=== PATIENT | female | born 1960 | race Caucasian/White ===

== ENCOUNTER 2018-05-02 18:32 | Inpatient (IN) | payer MEDICAID ==
[~2018-05-02] VITALS: Ht 167.6 cm; Wt 71.9 kg
--- NOTE | 2018-05-02 18:37 | ED.ADGEN ---
Past History Past Medical History: Anxiety, Bipolar, Dementia, Depression, Schizophrenia Adult General Chief Complaint Chief Complaint ".. I don't know.. I am just here..." HPI HPI Patient is a 57 year old female who presents with hx mental status changes and aggressive behavior. Pt. has been a resident of [facility] since 02/22/2017. Patient has become aggressive, striking other patients and staff. Has become very agitated, having hallucinations. The lip thinks these have been attacking her stinger hands and face. Patient paranoid that people are after her. Has had increased insomnia. Cursing staff and other patients. Yelling episodes with no provocation. Patient sent to [place] for evaluation on a senior behavioral unit. Patient does have a history of dementia, peripheral vascular disease, episodes of bradycardia, insomnia, chronic pain, constipation, poor impulse control, anxiety, GERD, past history of alcohol abuse and Warnicke'-Korsakoff syndrome . Pt. Followed by Dr. Lundy. Pt. on arrival is very agitated. Difficult to redirect. Required sedation to complete blood and x-ray evaluation. Review of Systems Review of Systems Pt. very poor historian- denies complaints Constitutional: Denies fever or chills [] Eyes: Denies change in visual acuity, redness, or eye pain [] HENT: Denies nasal congestion or sore throat [] Respiratory: Denies cough or shortness of breath [] Cardiovascular: No additional information not addressed in HPI [] GI: Denies abdominal pain, nausea, vomiting, bloody stools or diarrhea [] : Denies dysuria or hematuria [] Musculoskeletal: Denies back pain or joint pain [] Integument: Denies rash or skin lesions [] Neurologic: Denies headache, focal weakness or sensory changes [] Endocrine: Denies polyuria or polydipsia [] All other systems were reviewed and found to be within normal limits, except as documented in this note. Family History Family History Not currently available Current Medications Current Medications See nursing for intermediate medications Current Medications Medications (Trade) Dose Ordered Sig/Yamel Start Time Stop Time Status Last Admin Dose Admin Acetaminophen (Tylenol) 650 mg PRN Q4HRS PRN 05/02/18 21:30 05/03/18 21:29 Cephalexin HCl (Keflex) 500 mg 1X ONCE 05/02/18 22:15 05/02/18 22:16 DC Diphenhydramine HCl (Benadryl Oral Elixir) 50 mg 1X ONCE 05/02/18 20:30 05/02/18 20:31 DC 05/02/18 20:30 50 MG Lactated Ringer's 1,000 ml @ 100 mls/hr Q10H 05/02/18 18:38 05/03/18 04:37 05/02/18 18:38 100 MLS/HR Lorazepam (Ativan) 2 mg 1X ONCE 05/02/18 21:45 05/02/18 22:14 DC 05/02/18 22:05 2 MG Ziprasidone (Geodon Im) 20 mg 1X ONCE 05/02/18 21:45 05/02/18 22:14 DC 05/02/18 22:06 20 MG Allergies Allergies Allergies Coded Allergies Type Severity Reaction Last Updated Verified trazodone Allergy Intermediate 05/02/18 Yes Physical Exam Physical Exam Constitutional: in acute emotional distress, non-toxic appearance. [] HENT: Normocephalic, atraumatic, bilateral external ears normal, oropharynx moist, no oral exudates, nose normal. [] Eyes: PERRLA, EOMI, conjunctiva normal, no discharge. [] Neck: Normal range of motion, no tenderness, supple, no stridor. [] Cardiovascular:Bradycardia Heart rate regular rhythm, no murmur []PMI to Lt. Lungs & Thorax: Bilateral breath sounds equal apexes with scattered wheezes on auscultation [] Abdomen: Bowel sounds normal, soft, no tenderness, no masses, no pulsatile masses. [] Skin: Warm, dry, no erythema, no rash. [] Back: No tenderness, no CVA tenderness. [] Extremities: No tenderness, no cyanosis, no clubbing, ROM intact, no edema. [] Neurologic: Alert , agitated, uncooperative,,moves all ext. , decrease plantar sensation, no gross focal deficits noted. [] Psychologic: Affect very anxious, agitated,, judgement obviously impaired,. [] Appears to be hallucinating at times. Paranoid. Very difficult to re-direct. Current Patient Data Vital Signs Vital Signs Date Time Temp Pulse Resp B/P (MAP) Pulse Ox O2 Delivery O2 Flow Rate FiO2 05/02/18 18:44 97.9 78 18 98 Room Air Lab Results Laboratory Tests Test 05/02/18 18:35 05/02/18 18:50 05/02/18 19:30 White Blood Count 6.3 x10^3/uL (4.0-11.0) Red Blood Count 4.36 x10^6/uL (3.50-5.40) Hemoglobin 14.0 g/dL (12.0-15.5) Hematocrit 42.5 % (36.0-47.0) Mean Corpuscular Volume 98 fL (79-100) Mean Corpuscular Hemoglobin 32 pg (25-35) Mean Corpuscular Hemoglobin Concent 33 g/dL (31-37) Red Cell Distribution Width 17.3 % (11.5-14.5) H Platelet Count 81 x10^3/uL (140-400) L Neutrophils (%) (Auto) 44 % (31-73) Lymphocytes (%) (Auto) 39 % (24-48) Monocytes (%) (Auto) 15 % (0-9) H Eosinophils (%) (Auto) 1 % (0-3) Basophils (%) (Auto) 0 % (0-3) Neutrophils # (Auto) 2.8 x10^3uL (1.8-7.7) Lymphocytes # (Auto) 2.4 x10^3/uL (1.0-4.8) Monocytes # (Auto) 0.9 x10^3/uL (0.0-1.1) Eosinophils # (Auto) 0.1 x10^3/uL (0.0-0.7) Basophils # (Auto) 0.0 x10^3/uL (0.0-0.2) Erythrocyte Sedimentation Rate 2 (0-25) Urine Collection Type Unknown Urine Color [place] Urine Clarity Clear Urine pH 5.5 Urine Specific [place] 1.025 Urine Protein 30 mg/dl (NEG-TRACE) Urine Glucose (UA) Neg mg/dL (NEG) Urine Ketones (Stick) 15 mg/dL (NEG) Urine Blood Neg (NEG) Urine Nitrite Pos (NEG) Urine Bilirubin Neg (NEG) Urine Urobilinogen Dipstick 8 mg/dL (0.2 mg/dL) Urine Leukocyte Esterase Small (NEG) Urine RBC 0 /HPF (0-2) Urine WBC 11-20 /HPF (0-4) Urine Squamous Epithelial Cells Occ /LPF Urine Bacteria Few /HPF (0-FEW) Urine Mucus Mod /LPF Urine Opiates Screen Neg (NEG) Urine Methadone Screen Neg (NEG) Urine Barbiturates Neg (NEG) Urine Phencyclidine Screen Neg (NEG) Urine Amphetamine/Methamphetamine Neg (NEG) Urine Benzodiazepines Screen Neg (NEG) Urine Cocaine Screen Neg (NEG) Urine Cannabinoids Screen Neg (NEG) Urine Ethyl Alcohol Neg (NEG) Prothrombin Time 11.2 SEC (9.4-11.4) Prothrombin Time INR 1.1 (0.9-1.1) PTT 27 SEC (23-33) Sodium Level 146 mmol/L (136-145) H Potassium Level 4.1 mmol/L (3.5-5.1) Chloride Level 110 mmol/L (98-107) H Carbon Dioxide Level 30 mmol/L (21-32) Anion Gap 6 (6-14) Blood Urea Nitrogen 15 mg/dL (7-20) Creatinine 0.8 mg/dL (0.6-1.0) Estimated GFR (Cockcroft-Gault) 73.9 Glucose Level 100 mg/dL (70-99) H Calcium Level 8.7 mg/dL (8.5-10.1) Magnesium Level 1.8 mg/dL (1.8-2.4) Total Bilirubin 0.5 mg/dL (0.2-1.0) Direct Bilirubin 0.2 mg/dL (0.0-0.2) Aspartate Amino Transferase (AST) 13 U/L (15-37) L Alanine Aminotransferase (ALT) 10 U/L (14-59) L Alkaline Phosphatase 49 U/L (46-116) Creatine Kinase 24 U/L (26-192) L Troponin I Quantitative < 0.017 ng/mL (0-0.055) YS-Afi-J-Type Natriuretic Peptide 236 pg/mL (0-124) H Total Protein 6.1 g/dL (6.4-8.2) L Albumin 2.8 g/dL (3.4-5.0) L Lipase 204 U/L (73-393) EKG EKG My interpretation EKG shows a sinus rhythm at 68 bpm. Low voltage. No acute findings.[] Radiology/Procedures Radiology/Procedures Patient chest x-ray shows no acute cardiopulmonary findings.. Findings of chronic emphysema/COPD changes.. My interpretation CT head shows no shift, mass , bleed, or fracture. Does have some volume loss.[ Cervical DJD. No obvious fx. ]See formal report when available. Course & Med Decision Making Course & Med Decision Making Pertinent Labs and Imaging studies reviewed. (See chart for details) Patient admitted to senior behavioral psych- Dr. Daley. Consult to Dr. Villegas for medical issues. [] Final Impression Final Impression 1. Mental Status Change 2. Dementia 3. Aggressive Behavior 4. Hypernatremia 146 5. Thrombocytopenia 81 6. Hx. Schizoaffective Disorder 7. UTI [] Dragon Disclaimer Dragon Disclaimer This electronic medical record was generated, in whole or in part, using a voice recognition dictation system. [employer] Disclaimer This chart was dictated in whole or in part using Voice Recognition software in a busy, high-work load, and often noisy Emergency Department environment. It may contain unintended and wholly unrecognized errors or omissions. Discharge Summary Visit Information Final Diagnosis Problems Medical Problems: (1) Mental status change resolved Status: Acute Brief Hospital Course Allergies Allergies Coded Allergies Type Severity Reaction Last Updated Verified trazodone Allergy Intermediate 05/02/18 Yes Vital Signs Vital Signs Date Time Temp Pulse Resp B/P (MAP) Pulse Ox O2 Delivery O2 Flow Rate FiO2 05/03/18 07:19 98.2 55 16 117/89 (98) 95 05/02/18 18:44 Room Air Lab Results Laboratory Tests Test 05/02/18 18:35 05/02/18 18:50 05/02/18 19:30 White Blood Count 6.3 x10^3/uL (4.0-11.0) Red Blood Count 4.36 x10^6/uL (3.50-5.40) Hemoglobin 14.0 g/dL (12.0-15.5) Hematocrit 42.5 % (36.0-47.0) Mean Corpuscular Volume 98 fL (79-100) Mean Corpuscular Hemoglobin 32 pg (25-35) Mean Corpuscular Hemoglobin Concent 33 g/dL (31-37) Red Cell Distribution Width 17.3 % (11.5-14.5) Platelet Count 81 x10^3/uL (140-400) Neutrophils (%) (Auto) 44 % (31-73) Lymphocytes (%) (Auto) 39 % (24-48) Monocytes (%) (Auto) 15 % (0-9) Eosinophils (%) (Auto) 1 % (0-3) Basophils (%) (Auto) 0 % (0-3) Neutrophils # (Auto) 2.8 x10^3uL (1.8-7.7) Lymphocytes # (Auto) 2.4 x10^3/uL (1.0-4.8) Monocytes # (Auto) 0.9 x10^3/uL (0.0-1.1) Eosinophils # (Auto) 0.1 x10^3/uL (0.0-0.7) Basophils # (Auto) 0.0 x10^3/uL (0.0-0.2) Erythrocyte Sedimentation Rate 2 (0-25) Urine Collection Type Unknown Urine Color [place]chan Urine Clarity Clear Urine pH 5.5 Urine Specific [place] 1.025 Urine Protein 30 mg/dl (NEG-TRACE) Urine Glucose (UA) Neg mg/dL (NEG) Urine Ketones (Stick) 15 mg/dL (NEG) Urine Blood Neg (NEG) Urine Nitrite Pos (NEG) Urine Bilirubin Neg (NEG) Urine Urobilinogen Dipstick 8 mg/dL (0.2 mg/dL) Urine Leukocyte Esterase Small (NEG) Urine RBC 0 /HPF (0-2) Urine WBC 11-20 /HPF (0-4) Urine Squamous Epithelial Cells Occ /LPF Urine Bacteria Few /HPF (0-FEW) Urine Mucus Mod /LPF Urine Opiates Screen Neg (NEG) Urine Methadone Screen Neg (NEG) Urine Barbiturates Neg (NEG) Urine Phencyclidine Screen Neg (NEG) Urine Amphetamine/Methamphetamine Neg (NEG) Urine Benzodiazepines Screen Neg (NEG) Urine Cocaine Screen Neg (NEG) Urine Cannabinoids Screen Neg (NEG) Urine Ethyl Alcohol Neg (NEG) Prothrombin Time 11.2 SEC (9.4-11.4) Prothromb Time International Ratio 1.1 (0.9-1.1) Activated Partial Thromboplast Time 27 SEC (23-33) Sodium Level 146 mmol/L (136-145) Potassium Level 4.1 mmol/L (3.5-5.1) Chloride Level 110 mmol/L (98-107) Carbon Dioxide Level 30 mmol/L (21-32) Anion Gap 6 (6-14) Blood Urea Nitrogen 15 mg/dL (7-20) Creatinine 0.8 mg/dL (0.6-1.0) Estimated GFR (Cockcroft-Gault) 73.9 Glucose Level 100 mg/dL (70-99) Calcium Level 8.7 mg/dL (8.5-10.1) Magnesium Level 1.8 mg/dL (1.8-2.4) Total Bilirubin 0.5 mg/dL (0.2-1.0) Direct Bilirubin 0.2 mg/dL (0.0-0.2) Aspartate Amino Transf (AST/SGOT) 13 U/L (15-37) Alanine Aminotransferase (ALT/SGPT) 10 U/L (14-59) Alkaline Phosphatase 49 U/L (46-116) Creatine Kinase 24 U/L (26-192) Troponin I Quantitative < 0.017 ng/mL (0-0.055) TO-Dkn-X-Type Natriuretic Peptide 236 pg/mL (0-124) Total Protein 6.1 g/dL (6.4-8.2) Albumin 2.8 g/dL (3.4-5.0) Lipase 204 U/L (73-393) Valproic Acid (Depakene) Level 114 mcg/mL (50-100) Valproic Acid Last Dose Date 05/02/2018 Valproic Acid Last Dose Time 0900 Brief Hospital Course Ms. Baez is a 57 old female who presented with mental status change and aggressive behavioral issues. Admitted to [facility]. Dr. Daley. Consult to [facility] - for medical issues. Discharge Information Condition at Discharge: Improved, Stable Dischare Medications Current Medications Lactated Ringer's 1,000 ml @ 100 mls/hr Q10H IV Last administered on 18:38; Start 05/02/18 at 18:38; Stop 05/03/18 at 04:37; Status DC Lorazepam (Ativan) 2 mg 1X ONCE PO Last administered on 05/02/18at 20:30; Start 05/02/18 at 20:30; Stop 05/02/18 at 20:31; Status DC Diphenhydramine HCl (Benadryl Oral Elixir) 50 mg 1X ONCE PO Last administered on 05/02/18at 20:30; Start 05/02/18 at 20:30; Stop 05/02/18 at 20:31; Status DC Cephalexin HCl (Keflex) 500 mg 1X ONCE PO Last administered on 05/03/18at 08:10 ; Start 05/02/18 at 21:45; Stop 05/02/18 at 21:46; Status DC Acetaminophen (Tylenol) 650 mg PRN Q4HRS PRN PO FEVER; Start 05/02/18 at 21:30 ; Stop 05/03/18 at 21:29 Cephalexin HCl (Keflex) 500 mg 1X ONCE PO ; Start 05/02/18 at 22:15; Stop 05/02 at 22:16; Status DC Ziprasidone (Geodon Im) 20 mg 1X ONCE IM Last administered on 05/02/18at 22:06 ; Start 05/02/18 at 21:45; Stop 05/02/18 at 22:14; Status DC Lorazepam (Ativan) 2 mg 1X ONCE IM Last administered on 05/02/18at 22:05; Start 05/02/18 at 21:45; Stop 05/02/18 at 22:14; Status DC Cephalexin HCl (Keflex) 500 mg TID PO Last administered on 05/03/18at 08:12; Start 05/03/18 at 09:00 Multi-Ingredient Ointment (Analgesic Romance) 1 saqib PRN QID PRN TP MUSCLE PAIN; Start 05/03/18 at 02:00 Al Hydroxide/Mg Hydroxide (Mylanta Plus Xs) 15 ml PRN AFTMEALHC PRN PO DYSPEPSIA; Start 05/03/18 at 02:00 Magnesium Hydroxide (Milk Of Magnesia) 2,400 mg PRN QHS PRN PO CONSTIPATION; Start 05/03/18 at 02:00 Lorazepam (Ativan) 1 mg HS PO ; Start 05/03/18 at 21:00 Lorazepam (Ativan) 1 mg PRN TID PRN PO ANXIETY / AGITATION; Start 05/03/18 at 02:00 Divalproex Sodium (Depakote Sprinkles) 1,000 mg BID PO Last administered on at 08:10; Start 05/03/18 at 09:00 Polyethylene Glycol (miraLAX) 17 gm DAILY PO Last administered on 05/03/18at 08: 09; Start 05/03/18 at 09:00 Thiamine HCl (Vitamin B-1) 100 mg DAILY PO Last administered on 05/03/18at 08:10 ; Start 05/03/18 at 09:00 Active Scripts Active Reported Ativan (Lorazepam) 1 Mg Tablet 1 Mg PO PRN TID PRN Depakote Sprinkle (Divalproex Sodium) 125 Mg Cap.sprink 1,000 Mg PO BID Ativan (Lorazepam) 1 Mg Tablet 1 Mg PO HS Tylenol (Acetaminophen) 325 Mg Tablet 650 Mg PO PRN Q6HRS PRN Miralax (Polyethylene Glycol 3350) 17 Gm Powd.pack 1 Packet PO DAILY Vitamin B-1 (Thiamine Hcl) 100 Mg Tablet 100 Mg PO DAILY WIL GALLAGHER MD May 02, 2018 18:37
[2018-05-02] MEDS ORDERED: IV RINGERS SOLUTION,LACTATED 1,000 ML IV SCH (18:38)
[2018-05-02 19:13] LABS: BASO % 0 % (0-3); EOS # 0.1 x10^3/uL (0.0-0.7); EOS % 1 % (0-3); HEMATOCRIT 42.5 % (36.0-47.0); LYMPH # 2.4 x10^3/uL (1.0-4.8); LYMPH % 39 % (24-48); MEAN CORPUSCULAR HEMOGLOBIN 32 pg (25-35); MEAN CORPUSCULAR HGB CONC 33 g/dL (31-37); MEAN CORPUSCULAR VOLUME 98 fL (79-100); MONO # 0.9 x10^3/uL (0.0-1.1); MONO % 15 % (0-9); NEUT # 2.8 x10^3uL (1.8-7.7); NEUT % 44 % (31-73); PLATELET COUNT 81 x10^3/uL (140-400); RED BLOOD COUNT 4.36 x10^6/uL (3.50-5.40); RED CELL DISTRIBUTION WIDTH 17.3 % (11.5-14.5); WHITE BLOOD COUNT 6.3 x10^3/uL (4.0-11.0)
[2018-05-02 19:42] LABS: BARBITURATES NEG (NEG); BENZODIAZEPINES NEG (NEG); CANNABINOIDS NEG (NEG); COCAINE NEG (NEG); METHADONE NEG (NEG); OPIATES NEG (NEG); PHENCYCLIDINE NEG (NEG)
[2018-05-02 19:42] LABS: BILIRUBIN,URINE NEG (NEG); CLARITY,URINE CLEAR; COLOR,URINE AMBER; GLUCOSE,URINE NEG (NEG)
[2018-05-02 19:43] LABS: BACTERIA,URINE FEW /HPF (0-FEW); NITRITE,URINE POS (NEG); RBC,URINE 0 /HPF (0-2); SQUAMOUS EPITHELIAL CELL,UR OCC /LPF; UROBILINOGEN,URINE 8 mg/dL (0.2 mg/dL)
[2018-05-02 19:46] LABS: AMPHETAMINE/METHAMPHETAMINE NEG (NEG)
[2018-05-02 20:09] LABS: ALBUMIN 2.8 g/dL (3.4-5.0); CALCIUM 8.7 mg/dL (8.5-10.1); CREATININE 0.8 mg/dL (0.6-1.0); DIRECT BILIRUBIN 0.2 mg/dL (0.0-0.2); GFR 73.9; MAGNESIUM 1.8 mg/dL (1.8-2.4); POTASSIUM 4.1 mmol/L (3.5-5.1); TOTAL BILIRUBIN 0.5 mg/dL (0.2-1.0); TOTAL PROTEIN 6.1 g/dL (6.4-8.2)
[2018-05-02 20:18] LABS: SEDIMENTATION RATE 2 (0-25)
[2018-05-02] MEDS ORDERED: LORazepam 1 MG TABLET PO ONE (20:30)
[2018-05-02] MEDS ORDERED: diphenhydrAMINE ORAL ELIXIR 12.5 MG/5 ML ML PO ONE (20:30)
[2018-05-02] MEDS ORDERED: ACETAMINOPHEN 325 MG TABLET PO PRN (21:30)
[2018-05-02] MEDS ORDERED: CEPHALEXIN 250 MG CAPSULE PO ONE ×2 (21:45→22:15)
[2018-05-02] MEDS ORDERED: ZIPRASIDONE IM 20 MG VIAL. IM ONE (21:45)
--- NOTE | 2018-05-02 22:57 | EKG ---
[address] [address] Test Date: 2018-05-02 Test Time: 19:07:00 Pat Name: HANNAH PARKER Department: Room: Gender: F Steam Room Attendant: SOPHIE : 1960 Requested By: WIL GALLAGHER Order Number: [id number] Reading MD: Misael Srivastava Measurements Intervals [place] Rate: 68 P: 36 [place]: 178 QRS: 13 QRSD: 82 T: 13 QT: 392 QTc: 417 Interpretive Statements SINUS RHYTHM LOW LIMB LEAD VOLTAGE Electronically Signed On 05-05-2018 10:51:35 HAND PACKER by Misael Srivastava
--- NOTE | 2018-05-02 23:03 | RAD ---
PQRS Compliance Statement: One or more of the following individualized dose reduction techniques were utilized for this examination: 1. Automated exposure control 2. Adjustment of the mA and/or kV according to patient size 3. Use of iterative reconstruction technique CT head and cervical spine without contrast 05/02/2018 10:27 PM INDICATION: Mental status change with history of falls. COMPARISON: None available TECHNIQUE: Multiple axial CT images of the head were obtained from skull base through the vertex without intravenous contrast. Multiple axial CT images of the cervical spine were obtained without intravenous contrast. Coronal and sagittal reformats are provided. FINDINGS: Head: Ventricles, sulci and basal cisterns are prominent compatible with mild generalized cerebral volume loss. There is no hydrocephalus. Perrin-white matter differentiation is normal. There is no acute intracranial hemorrhage. There is no mass, mass effect or midline shift. Posterior fossa is normal in appearance. Visualized portions of the orbits are normal. Paranasal sinuses are well aerated. Mastoid air cells are well aerated. Scalp and calvaria are normal. Cervical spine: Evaluation is degraded by motion artifact. Craniocervical junction is intact. Atlantoaxial articulation is intact. There is subtle height loss involving C4 which may be chronic. There is moderate disc height loss at its C3-C4 and C5-C6. No definite acute fracture is identified. At C3-C4, there is a posterior disc osteophyte complex with moderate facet arthropathy and mild uncovertebral joint disease resulting in moderate left and mild right neuroforaminal stenosis. At C5-C6, there is a posterior disc osteophyte complex with moderate facet arthropathy and moderate uncovertebral joint disease resulting in severe right and moderate left neuroforaminal stenosis. There is no significant spinal canal stenosis. Thyroid gland is normal in appearance. Paraspinal soft tissues are normal in appearance. Lungs are clear. IMPRESSION: 1. No acute intracranial hemorrhage. 2. No acute fracture or malalignment of the cervical spine. Mild cervical spondylosis. Minimal height loss of C4 may be chronic. Correlate with the site of point tenderness. Electronically signed by: Phoebe Parekh MD (05/02/2018 11:00 PM) [facility]
[2018-05-03] MEDS ORDERED: LORA-254 PO ×2 (00:28)
[2018-05-03] MEDS ORDERED: ACET325T9 PO (00:28)
[2018-05-03] MEDS ORDERED: POLY17PO5 PO (00:28)
[2018-05-03] MEDS ORDERED: DIVA125C2 PO (00:28)
[2018-05-03] MEDS ORDERED: THIA100T57 PO (00:28)
[2018-05-03] MEDS ORDERED: METHYL SALICYLATE/MENTHOL TOPICAL OINTMENT 29GM TUBE. TP PRN (02:00)
[2018-05-03] MEDS ORDERED: MAGNESIUM HYDROXIDE 2,400 MG/30 ML ORAL.SUSP. PO PRN (02:00)
[2018-05-03] MEDS ORDERED: MAG HYDROX/AL HYDROX/SIMETH 30 ML ORAL.SUSP PO PRN (02:00)
[2018-05-03 02:12] VITALS: BP 121/76
[2018-05-03 07:19] VITALS: BP 117/89
[2018-05-03 07:30] LABS: VAL ACID 114 mcg/mL (50-100)
--- NOTE | 2018-05-03 07:40 | RAD ---
PROCEDURE: PORTABLE CHEST 1V CLINICAL INDICATION: DYSPNEA, PSYCH EVAL COMPARISON: None FINDINGS: No pneumothorax identified. Cardiac and mediastinal contours unremarkable. No pulmonary consolidation or acute airspace disease. No acute osseous abnormalities identified. IMPRESSION: No pulmonary consolidation or acute airspace disease. Electronically signed by: Lee Frost DO (05/03/2018 7:37 AM) [facility]
[2018-05-03] MEDS: POLYETHYLENE GLYCOL 3350 17 GM PACKET. PO SCH (08:09)
[2018-05-03] MEDS: THIAMINE 100 MG TABLET. PO SCH (08:10)
[2018-05-03] MEDS: DIVALPROEX 125 MG CAP.SPRINK PO SCH ×2 (08:10→19:52)
[2018-05-03] MEDS: CEPHALEXIN 250 MG CAPSULE PO SCH ×3 (08:12→21:04)
[2018-05-03 11:12] LABS: THYROXINE 5.5 ug/dL (4.5-12.0)
[2018-05-03 15:51] VITALS: BP 112/76
[2018-05-03] MEDS: LORazepam 1 MG TABLET PO SCH (21:04)
--- NOTE | 2018-05-03 21:44 | PDOC ---
Exam Note: Jose Note: Please also refer to the separate dictated note~for this date of service dictated separately.~Patient seen individually. Discussed the patient with Nursing staff reviewed the chart.~Reviewed interim history and current functioning. Reviewed vital signs,~Labs/ Radiology~and current medications noted below. Continue current treatment with the changes noted in the dictated addendum note Assessment: Vital Signs: Vital Signs Date Time Temp Pulse Resp B/P (MAP) Pulse Ox O2 Delivery O2 Flow Rate FiO2 05/03/18 15:51 97.4 80 20 112/76 (88) 98 Room Air I&O Intake and Output 05/03/18 07:00 Intake Total 1000 ml Balance 1000 ml IV Total 1000 ml Current Medications: Meds: Current Medications Lactated Ringer's 1,000 ml @ 100 mls/hr Q10H IV Last administered on at 18:38; Start 05/02/18 at 18:38; Stop 05/03/18 at 04:37; Status DC Lorazepam (Ativan) 2 mg 1X ONCE PO Last administered on 05/02/18at 20:30; Start 05/02/18 at 20:30; Stop 05/02/18 at 20:31; Status DC Diphenhydramine HCl (Benadryl Oral Elixir) 50 mg 1X ONCE PO Last administered on 05/02/18at 20:30; Start 05/02/18 at 20:30; Stop 05/02/18 at 20:31; Status DC Cephalexin HCl (Keflex) 500 mg 1X ONCE PO Last administered on 05/03/18at 08:10 ; Start 05/02/18 at 21:45; Stop 05/02/18 at 21:46; Status DC Acetaminophen (Tylenol) 650 mg PRN Q4HRS PRN PO FEVER; Start 05/02/18 at 21:30 ; Stop 05/03/18 at 21:29; Status DC Cephalexin HCl (Keflex) 500 mg 1X ONCE PO ; Start 05/02/18 at 22:15; Stop 05/02 at 22:16; Status DC Ziprasidone (Geodon Im) 20 mg 1X ONCE IM Last administered on 05/02/18at 22:06 ; Start 05/02/18 at 21:45; Stop 05/02/18 at 22:14; Status DC Lorazepam (Ativan) 2 mg 1X ONCE IM Last administered on 05/02/18at 22:05; Start 05/02/18 at 21:45; Stop 05/02/18 at 22:14; Status DC Cephalexin HCl (Keflex) 500 mg TID PO Last administered on 05/03/18at 21:04; Start 05/03/18 at 09:00 Multi-Ingredient Ointment (Analgesic Gilbert) 1 saqib PRN QID PRN TP MUSCLE PAIN; Start 05/03/18 at 02:00 Al Hydroxide/Mg Hydroxide (Mylanta Plus Xs) 15 ml PRN AFTMEALHC PRN PO DYSPEPSIA; Start 05/03/18 at 02:00 Magnesium Hydroxide (Milk Of Magnesia) 2,400 mg PRN QHS PRN PO CONSTIPATION; Start 05/03/18 at 02:00 Lorazepam (Ativan) 1 mg HS PO Last administered on 05/03/18at 21:04; Start 05/03 at 21:00 Lorazepam (Ativan) 1 mg PRN TID PRN PO ANXIETY / AGITATION; Start 05/03/18 at 02:00 Divalproex Sodium (Depakote Sprinkles) 1,000 mg BID PO Last administered on at 08:10; Start 05/03/18 at 09:00; Stop 05/03/18 at 19:52; Status DC Polyethylene Glycol (miraLAX) 17 gm DAILY PO Last administered on 05/03/18at 08: 09; Start 05/03/18 at 09:00 Thiamine HCl (Vitamin B-1) 100 mg DAILY PO Last administered on 05/03/18at 08:10 ; Start 05/03/18 at 09:00 Divalproex Sodium (Depakote Sprinkles) 1,000 mg DAILY PO ; Start 05/04/18 at 09: 00 Divalproex Sodium (Depakote Sprinkles) 500 mg HS PO ; Start 05/04/18 at 21:00 Active Scripts Active Reported Ativan (Lorazepam) 1 Mg Tablet 1 Mg PO PRN TID PRN Depakote Sprinkle (Divalproex Sodium) 125 Mg Cap.sprink 1,000 Mg PO BID Ativan (Lorazepam) 1 Mg Tablet 1 Mg PO HS Tylenol (Acetaminophen) 325 Mg Tablet 650 Mg PO PRN Q6HRS PRN Miralax (Polyethylene Glycol 3350) 17 Gm Powd.pack 1 Packet PO DAILY Vitamin B-1 (Thiamine Hcl) 100 Mg Tablet 100 Mg PO DAILY I have reviewed the current psychotropics carefully including drug interactions. Risk benefit ratio favors no change other than as noted in my dictated progress note. Diagnosis: Problems: (1) Anxiety disorder (2) Dementia associated with alcoholism with behavioral disturbance (3) Dementia, vascular, with delusions (4) Dementia, vascular, with depression (5) Impulse control disorder (6) Korsakoff's psychosis, alcohol related JARED CARTAGENA MD May 03, 2018 21:44
--- NOTE | 2018-05-03 22:53 | CONS ---
DATE OF CONSULTATION: 05/03/2018 REASON FOR CONSULTATION: Medical management. HISTORY OF PRESENT ILLNESS: The patient is a 57-year-old female patient, a resident at [facility], who was admitted as she was getting into other's spaces, ferocious to a staff, agitated, hallucinating, thinks bees are flying over her head and her hands, paranoid, yelling, difficult to redirect, and was admitted to this facility for inpatient psychiatric stabilization. PAST MEDICAL HISTORY: Significant for peripheral vascular disease, bradycardia, insomnia, chronic pain syndrome, constipation, gastroesophageal reflux disease, alcohol abuse. PAST PSYCHIATRIC HISTORY: Significant for dementia and Wernicke-Korsakoff psychosis. PAST SURGICAL HISTORY: Unremarkable. ALLERGIES: She is allergic to TRAZODONE. MEDICATIONS: She is currently on following medications: She is on acetaminophen 650 mg every 6 hours, divalproex sodium 1000 mg p.o. b.i.d., lorazepam 1 mg at bedtime, Ativan 1 mg 3 times a day as needed, polyethylene glycol 17 grams daily and thiamine 100 mg daily. FAMILY HISTORY: Noncontributory. SOCIAL HISTORY: She is a resident at [facility]. No further details are available. PHYSICAL EXAMINATION: GENERAL: When I examined her this afternoon, she was sitting comfortably in her chair, in no apparent distress, pale but no jaundice, cyanosis, or thyromegaly. No jugular venous distention. No limb edema. VITAL SIGNS: Her heart rate was 55, blood pressure was 117/89, temperature was 98.2, respiratory rate was 16, and oxygen saturation was 95% on room air. HEAD, EYES, EARS, NOSE AND THROAT: Showed normocephalic, atraumatic. NECK: Supple. HEART: Showed normal first and second heart sounds. No gallop, rub or murmur. CHEST: Clear to auscultation. No crepitation or rhonchi. ABDOMEN: Distended, soft, nontender. No guarding or rigidity. No organomegaly. All hernial orifices intact. Bowel sounds normal. NEUROLOGIC: She is awake, alert, but extremely confused. All her cranial nerves are grossly intact. EXTREMITIES: She moves extremities without difficulty. She apparently is able to ambulate without assistance or assistive devices. LABORATORY DATA: Her lab work showed a white cell count of 6300, hemoglobin 14, hematocrit 42, MCV 98 and platelet count of 81,000. Her prothrombin time was 11.2, INR of 1.1, aPTT was 27. Her chemistry showed her serum sodium to be 146, potassium 4.1, chloride 110, bicarbonate 30, anion gap of 6, BUN 15, creatinine 0.8, estimated GFR was 74 mL per minute. Her glucose was 100, calcium was 8.7, magnesium was 1.8. Total bilirubin, AST, ALT, alkaline phosphatase were normal. Her total protein was 6.1, albumin was 2.8. Her serum lipase was 204. Her serum triglycerides were 136, total cholesterol 174, LDL was 103, VLDL was 27 and HDL was 44, ratio was 3. Her TSH was 2.198 and total T4 was 5.5 and total T3 was 86. Her serum iron was high at 119, TIBC was low at 249 and percent saturation was 48%. Her urinalysis showed the urine was clear with pH of 5.5, specific gravity of 1.025. There is small amount of protein. The urine was negative for glucose, trace of ketones, negative for blood, positive for nitrite. There was small amount of leukocyte esterase, no rbc's, 11-20 wbc's and few bacteria. Her tox screen was negative and her valproic acid level was high at 114 mcg/mL. She did have a chest x-ray, which showed no pulmonary consolidation or acute airspace disease. CT scan of the head showed the ventricles, sulci, and basal cisterns are prominent compatible with mild generalized cerebral volume loss. There is no hydrocephalus. Perrin white matter differentiation is normal. There is no acute intracranial hemorrhage. There is no mass effect or midline shift. Posterior fossa is normal in appearance. The visualized portions of the orbits are normal. Paranasal sinuses are well aerated. Mastoid air cells are well aerated. Scalp and calvaria are normal. IMPRESSION: In summary, this is a 57-year-old female patient, a resident [facility] who was admitted on account of getting into other's spaces, ferocious to another staff member, agitated, hallucinating, thinks bees are flying over her head and her hands, all this in a background of dementia and also Wernicke-Korsakoff psychosis. She has multiple medical problems including bradycardia, peripheral vascular disease, gastroesophageal reflux disease, chronic pain syndrome, constipation. Reviewing all her labs and medications as well as vital signs, it seems that the patient is very stable medically. I will obviously review all the lab works still pending at the time of this dictation and make any necessary recommendation. Thank you, Dr. Daley, for allowing me to participate in the care of this patient. JOHANNA LOPEZ MD DR: BONG/ann JOB#: [id number] / [id number]
[2018-05-04 06:23] VITALS: BP 115/80
--- NOTE | 2018-05-04 06:44 | HP ---
ADMIT DATE: 05/03/2018 PSYCHIATRIC ADMISSION HISTORY/EVALUATION SUMMARY OF PROGRESS: Met with the patient evening of 05/03/2018 for this evaluation. IDENTIFYING DATA: The patient is a 57-year-old female referred to us from [place], [place] by Dr. Segura, her primary care physician with the diagnosis of Korsakoff syndrome secondary to past alcohol abuse and significant worsening of her behaviors. Reportedly, the patient was fixed being extremely intrusive, ''getting in other's faces.'' She raised a fist to the staff member, agitated, actively, hallucinating, thinking bees are flying above her head and on her hand. She has been yelling, cursing, unmanageable at the facility resulting in this referral. CHIEF COMPLAINT: ''Thank you.'' As I met with the patient, she had turned over the dining room chair and was pushing it all over the dining room. She has an IV line in place and was trying to pull on it, I covered it with her sleeve of her shirt and she thanked me for this, totally oblivious the way she is, perhaps aphasic with expressive aphasia, at times understanding better and she can express her. HISTORY OF PRESENT ILLNESS: The patient has a history of Korsakoff syndrome in the context of a past history of alcohol abuse. She has been residing at the above facility and was scheduled to see an outpatient psychiatrist. The behaviors have been extremely out of control as noted above with active hallucinations, aggression, marked mood lability. She has had sleep and appetite changes. No active suicidal or homicidal ideation. No clear history of bipolar disorder. CURRENT PSYCHOTROPICS: Ativan 1 mg at bedtime, 1 mg t.i.d. p.r.n. anxiety, Depakote Sprinkles 1000 mg p.o. b.i.d. but her level is 114, slightly above the upper range of normal. We will drop it down by 500 mg a day, hold it tonight and restart at the lower dosage tomorrow and repeat labs in 3 days. PAST MEDICAL HISTORY: She does have an active UTI and is on Keflex. Does have a history of bradycardia, peripheral vascular disease, chronic pain, chronic constipation, gastroesophageal reflux disease. DIET: Regular. CODE STATUS: Full code. ALLERGIES: TRAZODONE. FAMILY HISTORY: Noncontributory. SOCIAL HISTORY: Past history of alcohol abuse. No physical, sexual or elder abuse history is noted. Not known to be a perpetrator. She has been admitted by Shasha Baez, her daughter, legal guardian. REVIEW OF SYSTEMS: No CV, , pulmonary, eye, ENT system symptoms on review. Reliability is poor. MENTAL STATUS EXAMINATION: Oriented to herself. Insight, judgment, recent and remote memory, attention, concentration, fund of knowledge is poor, consistent with her diagnoses. 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 Rest diagnoses as above. PLAN: Admit to Geropsychiatry Unit at [facility]. I will see the patient daily individually from a psychiatric standpoint, medical followup with Dr. Villegas, treat the UTI, observe baseline, reduce the Depakote as above. May need to add Zyprexa p.r.n. ESTIMATED LENGTH OF STAY: 10-12 days. DISPOSITION: Plans back to [facility] when stable. JARED CARTAGENA MD DR: AARON/ann JOB#: [id number] / [id number]
[2018-05-04] MEDS: POLYETHYLENE GLYCOL 3350 17 GM PACKET. PO SCH (08:03)
[2018-05-04] MEDS: CEPHALEXIN 250 MG CAPSULE PO SCH ×3 (08:03→20:30)
[2018-05-04] MEDS: THIAMINE 100 MG TABLET. PO SCH (08:03)
[2018-05-04] MEDS: DIVALPROEX 125 MG CAP.SPRINK PO SCH ×2 (08:04→20:31)
[2018-05-04] MEDS: LACTOBACILLUS RHAMNOSUS GG 1 CAPSULE. PO SCH ×3 (09:00→20:30)
[2018-05-04 16:22] VITALS: BP 114/75
--- NOTE | 2018-05-04 19:48 | PDOC ---
Exam Note: Jose Note: Please also refer to the separate dictated note~for this date of service dictated separately.~Patient seen individually. Discussed the patient with Nursing staff reviewed the chart.~Reviewed interim history and current functioning. Reviewed vital signs,~Labs/ Radiology~and current medications noted below. Continue current treatment with the changes noted in the dictated addendum note Assessment: Vital Signs: Vital Signs Date Time Temp Pulse Resp B/P (MAP) Pulse Ox O2 Delivery O2 Flow Rate FiO2 05/04/18 16:22 98.6 120 18 114/75 (88) 97 05/03/18 15:51 Room Air I&O Intake and Output 05/04/18 06:59 Intake Total 660 ml Balance 660 ml Intake Oral 660 ml # Voids 1 Current Medications: Meds: Current Medications Lactated Ringer's 1,000 ml @ 100 mls/hr Q10H IV Last administered on 18:38; Start 05/02/18 at 18:38; Stop 05/03/18 at 04:37; Status DC Lorazepam (Ativan) 2 mg 1X ONCE PO Last administered on 05/02/18at 20:30; Start 05/02/18 at 20:30; Stop 05/02/18 at 20:31; Status DC Diphenhydramine HCl (Benadryl Oral Elixir) 50 mg 1X ONCE PO Last administered on 05/02/18at 20:30; Start 05/02/18 at 20:30; Stop 05/02/18 at 20:31; Status DC Cephalexin HCl (Keflex) 500 mg 1X ONCE PO Last administered on 05/03/18at 08:10 ; Start 05/02/18 at 21:45; Stop 05/02/18 at 21:46; Status DC Acetaminophen (Tylenol) 650 mg PRN Q4HRS PRN PO FEVER; Start 05/02/18 at 21:30 ; Stop 05/03/18 at 21:29; Status DC Cephalexin HCl (Keflex) 500 mg 1X ONCE PO ; Start 05/02/18 at 22:15; Stop 05/02 at 22:16; Status DC Ziprasidone (Geodon Im) 20 mg 1X ONCE IM Last administered on 05/02/18at 22:06 ; Start 05/02/18 at 21:45; Stop 05/02/18 at 22:14; Status DC Lorazepam (Ativan) 2 mg 1X ONCE IM Last administered on 05/02/18at 22:05; Start 05/02/18 at 21:45; Stop 05/02/18 at 22:14; Status DC Cephalexin HCl (Keflex) 500 mg TID PO Last administered on 05/04/18at 13:02; Start 05/03/18 at 09:00 Multi-Ingredient Ointment (Analgesic [place]) 1 saqib PRN QID PRN TP MUSCLE PAIN; Start 05/03/18 at 02:00 Al Hydroxide/Mg Hydroxide (Mylanta Plus Xs) 15 ml PRN AFTMEALHC PRN PO DYSPEPSIA; Start 05/03/18 at 02:00 Magnesium Hydroxide (Milk Of Magnesia) 2,400 mg PRN QHS PRN PO CONSTIPATION; Start 05/03/18 at 02:00 Lorazepam (Ativan) 1 mg HS PO Last administered on 05/03/18at 21:04; Start 05/03 at 21:00 Lorazepam (Ativan) 1 mg PRN TID PRN PO ANXIETY / AGITATION; Start 05/03/18 at 02:00 Divalproex Sodium (Depakote Sprinkles) 1,000 mg BID PO Last administered on 08:10; Start 05/03/18 at 09:00; Stop 05/03/18 at 19:52; Status DC Polyethylene Glycol (miraLAX) 17 gm DAILY PO Last administered on 05/04/18at 08: 03; Start 05/03/18 at 09:00 Thiamine HCl (Vitamin B-1) 100 mg DAILY PO Last administered on 05/04/18 08:03 ; Start 05/03/18 at 09:00 Divalproex Sodium (Depakote Sprinkles) 1,000 mg DAILY PO Last administered on 08:04; Start 05/04/18 at 09:00 Divalproex Sodium (Depakote Sprinkles) 500 mg HS PO ; Start 05/04/18 at 21:00 Lactobacillus Rhamnosus (Culturelle) 1 cap BID PO Last administered on at 13:03; Start 05/04/18 at 09:00 Active Scripts Active Reported Ativan (Lorazepam) 1 Mg Tablet 1 Mg PO PRN TID PRN Depakote Sprinkle (Divalproex Sodium) 125 Mg Cap.sprink 1,000 Mg PO BID Ativan (Lorazepam) 1 Mg Tablet 1 Mg PO HS Tylenol (Acetaminophen) 325 Mg Tablet 650 Mg PO PRN Q6HRS PRN Miralax (Polyethylene Glycol 3350) 17 Gm Powd.pack 1 Packet PO DAILY Vitamin B-1 (Thiamine Hcl) 100 Mg Tablet 100 Mg PO DAILY I have reviewed the current psychotropics carefully including drug interactions. Risk benefit ratio favors no change other than as noted in my dictated progress note. Diagnosis: Problems: (1) Anxiety disorder (2) Dementia associated with alcoholism with behavioral disturbance (3) Dementia, vascular, with delusions (4) Dementia, vascular, with depression (5) Impulse control disorder (6) Korsakoff's psychosis, alcohol related JARED CARTAGENA MD May 04, 2018 19:48
[2018-05-04] MEDS: LORazepam 1 MG TABLET PO SCH (20:30)
[2018-05-05 06:17] VITALS: BP 114/75
[2018-05-05] MEDS: THIAMINE 100 MG TABLET. PO SCH (08:08)
[2018-05-05] MEDS: LACTOBACILLUS RHAMNOSUS GG 1 CAPSULE. PO SCH ×2 (08:08→20:54)
[2018-05-05] MEDS: DIVALPROEX 125 MG CAP.SPRINK PO SCH ×2 (08:08→20:54)
[2018-05-05] MEDS: POLYETHYLENE GLYCOL 3350 17 GM PACKET. PO SCH (08:08)
[2018-05-05] MEDS: CEPHALEXIN 250 MG CAPSULE PO SCH ×2 (08:08→12:53)
[2018-05-05] MEDS: SERTRALINE 25 MG TABLET. PO SCH (08:10)
[2018-05-05] MEDS: FOLIC ACID 1 MG TABLET PO SCH (08:10)
[2018-05-05] MEDS: LORazepam 1 MG TABLET PO PRN (15:50)
[2018-05-05 16:01] VITALS: BP 121/81
--- NOTE | 2018-05-05 19:31 | PN ---
DATE: 05/04/2018 PSYCHIATRIC PROGRESS NOTE This late entry 05/04/2018 covers elements not covered in my initial note. SUBJECTIVE: I met with the patient in the evening. The patient slept 6-1/2 hours previous night. She remains extremely anxious, disorganized all over the place, seems to have some expressive aphasia. REVIEW OF SYSTEMS: No CV, , pulmonary, eye, ENT system symptoms on review. Reliability poor. MENTAL STATUS EXAMINATION: Oriented to herself. Insight, judgment, recent and remote memory, attention, concentration, fund of knowledge poor, consistent with her diagnoses. 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 Rest unchanged. PLAN: Start thiamine 100 mg a day, folic acid 1 mg a day, Zoloft 25 mg daily for 3 days, then 50 mg a day. Valproic acid level is above the therapeutic level at 114. We have reduced the Depakote from 1000 mg twice a day down to 1000 mg in the morning and 500 at night. Check CBC, CMP, valproic acid level in 3 days. Rest to be adjusted gradually. MAN Joann CARTAGENA MD DR: AARON/ann JOB#: [id number] / [id number]
[2018-05-05] MEDS: LORazepam 1 MG TABLET PO SCH (20:54)
--- NOTE | 2018-05-05 22:27 | PDOC ---
Exam Note: Jose Note: Please also refer to the separate dictated note~for this date of service dictated separately.~Patient seen individually. Discussed the patient with Nursing staff reviewed the chart.~Reviewed interim history and current functioning. Reviewed vital signs,~Labs/ Radiology~and current medications noted below. Continue current treatment with the changes noted in the dictated addendum note Assessment: Vital Signs: Vital Signs Date Time Temp Pulse Resp B/P (MAP) Pulse Ox O2 Delivery O2 Flow Rate FiO2 05/05/18 16:01 97.6 76 18 121/81 (94) 98 05/03/18 15:51 Room Air I&O Intake and Output 05/05/18 06:59 Intake Total 660 ml Balance 660 ml Intake Oral 660 ml # Voids 1 Current Medications: Meds: Current Medications Lactated Ringer's 1,000 ml @ 100 mls/hr Q10H IV Last administered on 18:38; Start 05/02/18 at 18:38; Stop 05/03/18 at 04:37; Status DC Lorazepam (Ativan) 2 mg 1X ONCE PO Last administered on 05/02/18at 20:30; Start 05/02/18 at 20:30; Stop 05/02/18 at 20:31; Status DC Diphenhydramine HCl (Benadryl Oral Elixir) 50 mg 1X ONCE PO Last administered on 05/02/18at 20:30; Start 05/02/18 at 20:30; Stop 05/02/18 at 20:31; Status DC Cephalexin HCl (Keflex) 500 mg 1X ONCE PO Last administered on 05/03/18at 08:10 ; Start 05/02/18 at 21:45; Stop 05/02/18 at 21:46; Status DC Acetaminophen (Tylenol) 650 mg PRN Q4HRS PRN PO FEVER; Start 05/02/18 at 21:30 ; Stop 05/03/18 at 21:29; Status DC Cephalexin HCl (Keflex) 500 mg 1X ONCE PO ; Start 05/02/18 at 22:15; Stop 05/02 at 22:16; Status DC Ziprasidone (Geodon Im) 20 mg 1X ONCE IM Last administered on 05/02/18at 22:06 ; Start 05/02/18 at 21:45; Stop 05/02/18 at 22:14; Status DC Lorazepam (Ativan) 2 mg 1X ONCE IM Last administered on 05/02/18 22:05; Start 05/02/18 at 21:45; Stop 05/02/18 at 22:14; Status DC Cephalexin HCl (Keflex) 500 mg TID PO Last administered on 05/05/18 12:53; Start 05/03/18 at 09:00; Stop 05/05/18 at 16:29; Status DC Multi-Ingredient Ointment (Analgesic [place]) 1 saqib PRN QID PRN TP MUSCLE PAIN; Start 05/03/18 at 02:00 Al Hydroxide/Mg Hydroxide (Mylanta Plus Xs) 15 ml PRN AFTMEALHC PRN PO DYSPEPSIA; Start 05/03/18 at 02:00 Magnesium Hydroxide (Milk Of Magnesia) 2,400 mg PRN QHS PRN PO CONSTIPATION; Start 05/03/18 at 02:00 Lorazepam (Ativan) 1 mg HS PO Last administered on 05/05/18 20:54; Start 05/03 at 21:00 Lorazepam (Ativan) 1 mg PRN TID PRN PO ANXIETY / AGITATION Last administered on 05/05/18 15:50; Start 05/03/18 at 02:00 Divalproex Sodium (Depakote Sprinkles) 1,000 mg BID PO Last administered on 08:10; Start 05/03/18 at 09:00; Stop 05/03/18 at 19:52; Status DC Polyethylene Glycol (miraLAX) 17 gm DAILY PO Last administered on 05/05/18 08: 08; Start 05/03/18 at 09:00 Thiamine HCl (Vitamin B-1) 100 mg DAILY PO Last administered on 05/05/18 08:08 ; Start 05/03/18 at 09:00 Divalproex Sodium (Depakote Sprinkles) 1,000 mg DAILY PO Last administered on 08:08; Start 05/04/18 at 09:00 Divalproex Sodium (Depakote Sprinkles) 500 mg HS PO Last administered on 20:54; Start 05/04/18 at 21:00 Lactobacillus Rhamnosus (Culturelle) 1 cap BID PO Last administered on 2/25/ 19at 20:54; Start 05/04/18 at 09:00 Folic Acid (Folic Acid) 1 mg DAILY PO Last administered on 05/05/18at 08:10; Start 05/05/18 at 09:00 Sertraline HCl (Zoloft) 25 mg DAILY PO Last administered on 05/05/18at 08:10; Start 05/05/18 at 09:00; Stop 05/07/18 at 09:01 Sertraline HCl (Zoloft) 50 mg DAILY PO ; Start 05/08/18 at 09:00 Active Scripts Active Reported Ativan (Lorazepam) 1 Mg Tablet 1 Mg PO PRN TID PRN Depakote Sprinkle (Divalproex Sodium) 125 Mg Cap.sprink 1,000 Mg PO BID Ativan (Lorazepam) 1 Mg Tablet 1 Mg PO HS Tylenol (Acetaminophen) 325 Mg Tablet 650 Mg PO PRN Q6HRS PRN Miralax (Polyethylene Glycol 3350) 17 Gm Powd.pack 1 Packet PO DAILY Vitamin B-1 (Thiamine Hcl) 100 Mg Tablet 100 Mg PO DAILY I have reviewed the current psychotropics carefully including drug interactions. Risk benefit ratio favors no change other than as noted in my dictated progress note. Diagnosis: Problems: (1) Anxiety disorder (2) Dementia associated with alcoholism with behavioral disturbance (3) Dementia, vascular, with delusions (4) Dementia, vascular, with depression (5) Impulse control disorder (6) Korsakoff's psychosis, alcohol related JARED CARTAGENA MD May 05, 2018 22:27
[2018-05-06] MEDS: LORazepam 1 MG TABLET PO PRN ×2 (01:01→16:29)
[2018-05-06 06:14] VITALS: BP 109/67
[2018-05-06] MEDS: THIAMINE 100 MG TABLET. PO SCH (08:23)
[2018-05-06] MEDS: FOLIC ACID 1 MG TABLET PO SCH (08:23)
[2018-05-06] MEDS: SERTRALINE 25 MG TABLET. PO SCH (08:23)
[2018-05-06] MEDS: LACTOBACILLUS RHAMNOSUS GG 1 CAPSULE. PO SCH ×2 (08:23→21:13)
[2018-05-06] MEDS: POLYETHYLENE GLYCOL 3350 17 GM PACKET. PO SCH (08:24)
[2018-05-06] MEDS: DIVALPROEX 125 MG CAP.SPRINK PO SCH ×2 (08:24→21:13)
[2018-05-06 16:28] VITALS: BP 113/71
[2018-05-06] MEDS: CLOTRIMAZOLE/BETAMETH 1%-0.05% TOPICAL CREAM 15GM TUBE. TP SCH (21:00)
[2018-05-06] MEDS: LORazepam 1 MG TABLET PO SCH (21:18)
[2018-05-06] MEDS: MIRTAZAPINE 7.5 MG TABLET. PO SCH (21:18)
--- NOTE | 2018-05-06 22:33 | PDOC ---
Exam Note: Jose Note: Please also refer to the separate dictated note~for this date of service dictated separately.~Patient seen individually. Discussed the patient with Nursing staff reviewed the chart.~Reviewed interim history and current functioning. Reviewed vital signs,~Labs/ Radiology~and current medications noted below. Continue current treatment with the changes noted in the dictated addendum note Assessment: Vital Signs: Vital Signs Date Time Temp Pulse Resp B/P (MAP) Pulse Ox O2 Delivery O2 Flow Rate FiO2 05/06/18 16:28 96.7 75 16 113/71 (85) 92 05/03/18 15:51 Room Air I&O Intake and Output 05/06/18 06:59 Intake Total 420 ml Balance 420 ml Intake Oral 420 ml Current Medications: Meds: Current Medications Lactated Ringer's 1,000 ml @ 100 mls/hr Q10H IV Last administered on 18:38; Start 05/02/18 at 18:38; Stop 05/03/18 at 04:37; Status DC Lorazepam (Ativan) 2 mg 1X ONCE PO Last administered on 05/02/18 20:30; Start 05/02/18 at 20:30; Stop 05/02/18 at 20:31; Status DC Diphenhydramine HCl (Benadryl Oral Elixir) 50 mg 1X ONCE PO Last administered on 05/02/18at 20:30; Start 05/02/18 at 20:30; Stop 05/02/18 at 20:31; Status DC Cephalexin HCl (Keflex) 500 mg 1X ONCE PO Last administered on 05/03/18at 08:10 ; Start 05/02/18 at 21:45; Stop 05/02/18 at 21:46; Status DC Acetaminophen (Tylenol) 650 mg PRN Q4HRS PRN PO FEVER; Start 05/02/18 at 21:30 ; Stop 05/03/18 at 21:29; Status DC Cephalexin HCl (Keflex) 500 mg 1X ONCE PO ; Start 05/02/18 at 22:15; Stop 05/02 at 22:16; Status DC Ziprasidone (Geodon Im) 20 mg 1X ONCE IM Last administered on 05/02/18at 22:06 ; Start 05/02/18 at 21:45; Stop 05/02/18 at 22:14; Status DC Lorazepam (Ativan) 2 mg 1X ONCE IM Last administered on 05/02/18 22:05; Start 05/02/18 at 21:45; Stop 05/02/18 at 22:14; Status DC Cephalexin HCl (Keflex) 500 mg TID PO Last administered on 05/05/18 12:53; Start 05/03/18 at 09:00; Stop 05/05/18 at 16:29; Status DC Multi-Ingredient Ointment (Analgesic [place]) 1 saqib PRN QID PRN TP MUSCLE PAIN; Start 05/03/18 at 02:00 Al Hydroxide/Mg Hydroxide (Mylanta Plus Xs) 15 ml PRN AFTMEALHC PRN PO DYSPEPSIA; Start 05/03/18 at 02:00 Magnesium Hydroxide (Milk Of Magnesia) 2,400 mg PRN QHS PRN PO CONSTIPATION; Start 05/03/18 at 02:00 Lorazepam (Ativan) 1 mg HS PO Last administered on 05/06/18 21:18; Start 05/03 at 21:00 Lorazepam (Ativan) 1 mg PRN TID PRN PO ANXIETY / AGITATION Last administered on 05/06/18 16:29; Start 05/03/18 at 02:00 Divalproex Sodium (Depakote Sprinkles) 1,000 mg BID PO Last administered on 08:10; Start 05/03/18 at 09:00; Stop 05/03/18 at 19:52; Status DC Polyethylene Glycol (miraLAX) 17 gm DAILY PO Last administered on 05/06/18 08: 24; Start 05/03/18 at 09:00 Thiamine HCl (Vitamin B-1) 100 mg DAILY PO Last administered on 05/06/18 08:23 ; Start 05/03/18 at 09:00 Divalproex Sodium (Depakote Sprinkles) 1,000 mg DAILY PO Last administered on 08:24; Start 05/04/18 at 09:00 Divalproex Sodium (Depakote Sprinkles) 500 mg HS PO Last administered on 21:13; Start 05/04/18 at 21:00 Lactobacillus Rhamnosus (Culturelle) 1 cap BID PO Last administered on 2/26/ 19at 21:13; Start 05/04/18 at 09:00 Folic Acid (Folic Acid) 1 mg DAILY PO Last administered on 05/06/18at 08:23; Start 05/05/18 at 09:00 Sertraline HCl (Zoloft) 25 mg DAILY PO Last administered on 05/06/18at 08:23; Start 05/05/18 at 09:00; Stop 05/07/18 at 09:01 Sertraline HCl (Zoloft) 50 mg DAILY PO ; Start 05/08/18 at 09:00 Betamethasone/ Clotrimazole (Lotrisone) 1 saqib BID TP ; Start 05/06/18 at 21:00; Stop 05/14/18 at 20:59 Mirtazapine (Remeron) 7.5 mg QHS PO Last administered on 05/06/18at 21:18; Start 05/06/18 at 21:00 Active Scripts Active Reported Ativan (Lorazepam) 1 Mg Tablet 1 Mg PO PRN TID PRN Depakote Sprinkle (Divalproex Sodium) 125 Mg Cap.sprink 1,000 Mg PO BID Ativan (Lorazepam) 1 Mg Tablet 1 Mg PO HS Tylenol (Acetaminophen) 325 Mg Tablet 650 Mg PO PRN Q6HRS PRN Miralax (Polyethylene Glycol 3350) 17 Gm Powd.pack 1 Packet PO DAILY Vitamin B-1 (Thiamine Hcl) 100 Mg Tablet 100 Mg PO DAILY I have reviewed the current psychotropics carefully including drug interactions. Risk benefit ratio favors no change other than as noted in my dictated progress note. Diagnosis: Problems: (1) Anxiety disorder (2) Dementia associated with alcoholism with behavioral disturbance (3) Dementia, vascular, with delusions (4) Dementia, vascular, with depression (5) Impulse control disorder (6) Korsakoff's psychosis, alcohol related JARED CARTAGENA MD May 06, 2018 22:33
--- NOTE | 2018-05-07 03:44 | PN ---
DATE: 05/05/2018 This is a late entry for 05/05/2018 covers elements not covered in my initial note. SUBJECTIVE: I met with the patient in the evening. The patient has been wandering, confused, somewhat tearful. UA is unremarkable. She has been somewhat restless at times. We reduced the Depakote awaiting repeat labs on the . REVIEW OF SYSTEMS: No CV, , pulmonary, eye, ENT system symptoms on review. Reliability poor. MENTAL STATUS EXAM: Oriented to herself. Insight, judgment, recent and remote memory, attention, concentration, fund of knowledge poor, consistent with her diagnosis. IMPRESSION: Major neurocognitive disorder, multifactorial secondary to alcohol, possibly Wernicke-Korsakoff versus vascular with delusion, depression, behavioral disturbance; anxiety disorder, unspecified; impulse control disorder, unspecified. PLAN: Start thiamine 100 mg a day, folic acid 1 mg a day. Repeat level on the Depakote on 05/06/2018 and adjust thereafter. Rest unchanged for now. JARED CARTAGENA MD DR: AARON/ann JOB#: [id number] / [id number]
[2018-05-07 06:10] VITALS: BP 107/67
[2018-05-07] MEDS: FOLIC ACID 1 MG TABLET PO SCH (07:51)
[2018-05-07] MEDS: DIVALPROEX 125 MG CAP.SPRINK PO SCH ×2 (07:51→20:02)
[2018-05-07] MEDS: SERTRALINE 25 MG TABLET. PO SCH (07:51)
[2018-05-07] MEDS: THIAMINE 100 MG TABLET. PO SCH (07:52)
[2018-05-07] MEDS: POLYETHYLENE GLYCOL 3350 17 GM PACKET. PO SCH (07:52)
[2018-05-07] MEDS: LACTOBACILLUS RHAMNOSUS GG 1 CAPSULE. PO SCH ×2 (07:52→20:02)
[2018-05-07] MEDS: LORazepam 1 MG TABLET PO PRN (10:34)
[2018-05-07] MEDS: CLOTRIMAZOLE/BETAMETH 1%-0.05% TOPICAL CREAM 15GM TUBE. TP SCH ×2 (11:15→20:03)
[2018-05-07 16:08] VITALS: BP 104/68
[2018-05-07] MEDS: MIRTAZAPINE 7.5 MG TABLET. PO SCH (20:02)
[2018-05-07] MEDS: LORazepam 1 MG TABLET PO SCH (20:04)
--- NOTE | 2018-05-07 22:29 | PN ---
DATE: 05/06/2018 PSYCHIATRIC PROGRESS NOTE This late entry 05/06/2018 covers elements not covered in my initial note. SUBJECTIVE: I met with the patient in the evening. The patient slept just one hour previous night. She is extremely disorganized, alert to her name, undressing herself, taking her shirt off, grabbing things in the air, hallucinating. Urine culture is negative. Received Ativan p.r.n. REVIEW OF SYSTEMS: No CV, , pulmonary, eye, ENT system symptoms on review. Reliability poor. MENTAL STATUS EXAM: Oriented to herself. Insight, judgment, recent and remote memory, attention, concentration, fund of knowledge poor, consistent with her diagnosis mentioned in my initial note. PLAN: Start Remeron 7.5 mg p.o. at bedtime consequent to insomnia. Rest unchanged per initial note. MAN Joann CARTAGENA MD DR: AARON/ann JOB#: [id number] / [id number]
--- NOTE | 2018-05-07 22:37 | PDOC ---
Exam Note: Jose Note: Please also refer to the separate dictated note~for this date of service dictated separately.~Patient seen individually. Discussed the patient with Nursing staff reviewed the chart.~Reviewed interim history and current functioning. Reviewed vital signs,~Labs/ Radiology~and current medications noted below. Continue current treatment with the changes noted in the dictated addendum note Assessment: Vital Signs: Vital Signs Date Time Temp Pulse Resp B/P (MAP) Pulse Ox O2 Delivery O2 Flow Rate FiO2 05/07/18 16:08 98.2 71 20 104/68 (80) 97 05/03/18 15:51 Room Air I&O Intake and Output 05/07/18 06:59 Intake Total 1020 ml Balance 1020 ml Intake Oral 1020 ml # Voids 1 Current Medications: Meds: Current Medications Lactated Ringer's 1,000 ml @ 100 mls/hr Q10H IV Last administered on 18:38; Start 05/02/18 at 18:38; Stop 05/03/18 at 04:37; Status DC Lorazepam (Ativan) 2 mg 1X ONCE PO Last administered on 05/02/18at 20:30; Start 05/02/18 at 20:30; Stop 05/02/18 at 20:31; Status DC Diphenhydramine HCl (Benadryl Oral Elixir) 50 mg 1X ONCE PO Last administered on 05/02/18at 20:30; Start 05/02/18 at 20:30; Stop 05/02/18 at 20:31; Status DC Cephalexin HCl (Keflex) 500 mg 1X ONCE PO Last administered on 05/03/18at 08:10 ; Start 05/02/18 at 21:45; Stop 05/02/18 at 21:46; Status DC Acetaminophen (Tylenol) 650 mg PRN Q4HRS PRN PO FEVER; Start 05/02/18 at 21:30 ; Stop 05/03/18 at 21:29; Status DC Cephalexin HCl (Keflex) 500 mg 1X ONCE PO ; Start 05/02/18 at 22:15; Stop 05/02 at 22:16; Status DC Ziprasidone (Geodon Im) 20 mg 1X ONCE IM Last administered on 05/02/18at 22:06 ; Start 05/02/18 at 21:45; Stop 05/02/18 at 22:14; Status DC Lorazepam (Ativan) 2 mg 1X ONCE IM Last administered on 05/02/18 22:05; Start 05/02/18 at 21:45; Stop 05/02/18 at 22:14; Status DC Cephalexin HCl (Keflex) 500 mg TID PO Last administered on 05/05/18 12:53; Start 05/03/18 at 09:00; Stop 05/05/18 at 16:29; Status DC Multi-Ingredient Ointment (Analgesic [place]) 1 saqib PRN QID PRN TP MUSCLE PAIN; Start 05/03/18 at 02:00 Al Hydroxide/Mg Hydroxide (Mylanta Plus Xs) 15 ml PRN AFTMEALHC PRN PO DYSPEPSIA; Start 05/03/18 at 02:00 Magnesium Hydroxide (Milk Of Magnesia) 2,400 mg PRN QHS PRN PO CONSTIPATION; Start 05/03/18 at 02:00 Lorazepam (Ativan) 1 mg HS PO Last administered on 05/07/18at 20:04; Start 05/03 at 21:00 Lorazepam (Ativan) 1 mg PRN TID PRN PO ANXIETY / AGITATION Last administered on 05/07/18 10:34; Start 05/03/18 at 02:00 Divalproex Sodium (Depakote Sprinkles) 1,000 mg BID PO Last administered on 08:10; Start 05/03/18 at 09:00; Stop 05/03/18 at 19:52; Status DC Polyethylene Glycol (miraLAX) 17 gm DAILY PO Last administered on 05/07/18 07: 52; Start 05/03/18 at 09:00 Thiamine HCl (Vitamin B-1) 100 mg DAILY PO Last administered on 05/07/18 07:52 ; Start 05/03/18 at 09:00 Divalproex Sodium (Depakote Sprinkles) 1,000 mg DAILY PO Last administered on 07:51; Start 05/04/18 at 09:00 Divalproex Sodium (Depakote Sprinkles) 500 mg HS PO Last administered on 20:02; Start 05/04/18 at 21:00 Lactobacillus Rhamnosus (Culturelle) 1 cap BID PO Last administered on 20:02; Start 05/04/18 at 09:00 Folic Acid (Folic Acid) 1 mg DAILY PO Last administered on 05/07/18 07:51; Start 05/05/18 at 09:00 Sertraline HCl (Zoloft) 25 mg DAILY PO Last administered on 05/07/18 07:51; Start 05/05/18 at 09:00; Stop 05/07/18 at 09:01; Status DC Sertraline HCl (Zoloft) 50 mg DAILY PO ; Start 05/08/18 at 09:00 Betamethasone/ Clotrimazole (Lotrisone) 1 saqib BID TP Last administered on 20:03; Start 05/06/18 at 21:00; Stop 05/14/18 at 20:59 Mirtazapine (Remeron) 7.5 mg QHS PO Last administered on 05/07/18 20:02; Start 05/06/18 at 21:00 Active Scripts Active Reported Ativan (Lorazepam) 1 Mg Tablet 1 Mg PO PRN TID PRN Depakote Sprinkle (Divalproex Sodium) 125 Mg Cap.sprink 1,000 Mg PO BID Ativan (Lorazepam) 1 Mg Tablet 1 Mg PO HS Tylenol (Acetaminophen) 325 Mg Tablet 650 Mg PO PRN Q6HRS PRN Miralax (Polyethylene Glycol 3350) 17 Gm Powd.pack 1 Packet PO DAILY Vitamin B-1 (Thiamine Hcl) 100 Mg Tablet 100 Mg PO DAILY I have reviewed the current psychotropics carefully including drug interactions. Risk benefit ratio favors no change other than as noted in my dictated progress note. 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
[2018-05-08 05:53] VITALS: BP 127/90
[2018-05-08 07:40] LABS: BASO % 0 % (0-3); EOS # 0.2 x10^3/uL (0.0-0.7); EOS % 4 % (0-3); HEMATOCRIT 41.5 % (36.0-47.0); LYMPH # 2.2 x10^3/uL (1.0-4.8); LYMPH % 37 % (24-48); MEAN CORPUSCULAR HEMOGLOBIN 33 pg (25-35); MEAN CORPUSCULAR HGB CONC 34 g/dL (31-37); MEAN CORPUSCULAR VOLUME 97 fL (79-100); MONO # 1.1 x10^3/uL (0.0-1.1); MONO % 19 % (0-9); NEUT # 2.4 x10^3uL (1.8-7.7); NEUT % 40 % (31-73); PLATELET COUNT 112 x10^3/uL (140-400); RED BLOOD COUNT 4.26 x10^6/uL (3.50-5.40); RED CELL DISTRIBUTION WIDTH 16.7 % (11.5-14.5)
[2018-05-08 07:53] LABS: ALBUMIN 3.1 g/dL (3.4-5.0); ALBUMIN/GLOBULIN RATIO 0.8 (1.0-1.7); ALK PHOS 52 U/L (46-116); ALT (SGPT) 15 U/L (14-59); ANION GAP 7 (6-14); AST (SGOT) 18 U/L (15-37); BLOOD UREA NITROGEN 11 mg/dL (7-20); BUN/CREATININE RATIO 12 (6-20); CALCIUM 9.1 mg/dL (8.5-10.1); CARBON DIOXIDE 31 mmol/L (21-32); CHLORIDE 109 mmol/L (98-107); CREATININE 0.9 mg/dL (0.6-1.0); GFR 64.5; GLUCOSE 78 mg/dL (70-99); POTASSIUM 3.4 mmol/L (3.5-5.1); SODIUM 147 mmol/L (136-145); TOTAL BILIRUBIN 0.7 mg/dL (0.2-1.0); TOTAL PROTEIN 6.8 g/dL (6.4-8.2)
[2018-05-08 07:54] LABS: VAL ACID 101 mcg/mL (50-100)
[2018-05-08] MEDS: THIAMINE 100 MG TABLET. PO SCH (08:38)
[2018-05-08] MEDS: LACTOBACILLUS RHAMNOSUS GG 1 CAPSULE. PO SCH ×2 (08:38→19:50)
[2018-05-08] MEDS: DIVALPROEX 125 MG CAP.SPRINK PO SCH ×2 (08:39→19:51)
[2018-05-08] MEDS: FOLIC ACID 1 MG TABLET PO SCH (08:39)
[2018-05-08] MEDS: POLYETHYLENE GLYCOL 3350 17 GM PACKET. PO SCH (08:39)
[2018-05-08] MEDS: SERTRALINE 50 MG TABLET. PO SCH (08:40)
[2018-05-08] MEDS: CLOTRIMAZOLE/BETAMETH 1%-0.05% TOPICAL CREAM 15GM TUBE. TP SCH ×2 (08:40→19:51)
[2018-05-08 16:33] VITALS: BP 104/79
[2018-05-08] MEDS: LORazepam 1 MG TABLET PO SCH (19:50)
[2018-05-08] MEDS: MIRTAZAPINE 7.5 MG TABLET. PO SCH (19:51)
--- NOTE | 2018-05-08 22:33 | PDOC ---
Exam Note: Jose Note: Please also refer to the separate dictated note~for this date of service dictated separately.~Patient seen individually. Discussed the patient with Nursing staff reviewed the chart.~Reviewed interim history and current functioning. Reviewed vital signs,~Labs/ Radiology~and current medications noted below. Continue current treatment with the changes noted in the dictated addendum note Assessment: Vital Signs: Vital Signs Date Time Temp Pulse Resp B/P (MAP) Pulse Ox O2 Delivery O2 Flow Rate FiO2 05/08/18 16:33 98.1 89 16 104/79 (87) 95 Room Air I&O Intake and Output 05/08/18 07:00 Intake Total 540 ml Balance 540 ml Intake Oral 540 ml # Voids 1 # Bowel Movements 1 Labs: Laboratory Tests Test 05/08/18 07:26 White Blood Count 6.0 x10^3/uL (4.0-11.0) Red Blood Count 4.26 x10^6/uL (3.50-5.40) Hemoglobin 14.0 g/dL (12.0-15.5) Hematocrit 41.5 % (36.0-47.0) Mean Corpuscular Volume 97 fL (79-100) Mean Corpuscular Hemoglobin 33 pg (25-35) Mean Corpuscular Hemoglobin Concent 34 g/dL (31-37) Red Cell Distribution Width 16.7 % (11.5-14.5) H Platelet Count 112 x10^3/uL (140-400) L Neutrophils (%) (Auto) 40 % (31-73) Lymphocytes (%) (Auto) 37 % (24-48) Monocytes (%) (Auto) 19 % (0-9) H Eosinophils (%) (Auto) 4 % (0-3) H Basophils (%) (Auto) 0 % (0-3) Neutrophils # (Auto) 2.4 x10^3uL (1.8-7.7) Lymphocytes # (Auto) 2.2 x10^3/uL (1.0-4.8) Monocytes # (Auto) 1.1 x10^3/uL (0.0-1.1) Eosinophils # (Auto) 0.2 x10^3/uL (0.0-0.7) Basophils # (Auto) 0.0 x10^3/uL (0.0-0.2) Sodium Level 147 mmol/L (136-145) H Potassium Level 3.4 mmol/L (3.5-5.1) L Chloride Level 109 mmol/L (98-107) H Carbon Dioxide Level 31 mmol/L (21-32) Anion Gap 7 (6-14) Blood Urea Nitrogen 11 mg/dL (7-20) Creatinine 0.9 mg/dL (0.6-1.0) Estimated GFR (Cockcroft-Gault) 64.5 BUN/Creatinine Ratio 12 (6-20) Glucose Level 78 mg/dL (70-99) Calcium Level 9.1 mg/dL (8.5-10.1) Total Bilirubin 0.7 mg/dL (0.2-1.0) Aspartate Amino Transferase (AST) 18 U/L (15-37) Alanine Aminotransferase (ALT) 15 U/L (14-59) Alkaline Phosphatase 52 U/L (46-116) Total Protein 6.8 g/dL (6.4-8.2) Albumin 3.1 g/dL (3.4-5.0) L Albumin/Globulin Ratio 0.8 (1.0-1.7) L Valproic Acid Level 101 mcg/mL (50-100) H Valproic Acid Last Dose Date 05/07/18 Valproic Acid Last Dose Time 2100 Current Medications: Meds: Current Medications Lactated Ringer's 1,000 ml @ 100 mls/hr Q10H IV Last administered on 18:38; Start 05/02/18 at 18:38; Stop 05/03/18 at 04:37; Status DC Lorazepam (Ativan) 2 mg 1X ONCE PO Last administered on 05/02/18at 20:30; Start 05/02/18 at 20:30; Stop 05/02/18 at 20:31; Status DC Diphenhydramine HCl (Benadryl Oral Elixir) 50 mg 1X ONCE PO Last administered on 05/02/18at 20:30; Start 05/02/18 at 20:30; Stop 05/02/18 at 20:31; Status DC Cephalexin HCl (Keflex) 500 mg 1X ONCE PO Last administered on 05/03/18at 08:10 ; Start 05/02/18 at 21:45; Stop 05/02/18 at 21:46; Status DC Acetaminophen (Tylenol) 650 mg PRN Q4HRS PRN PO FEVER; Start 05/02/18 at 21:30 ; Stop 05/03/18 at 21:29; Status DC Cephalexin HCl (Keflex) 500 mg 1X ONCE PO ; Start 05/02/18 at 22:15; Stop 05/02 at 22:16; Status DC Ziprasidone (Geodon Im) 20 mg 1X ONCE IM Last administered on 05/02/18at 22:06 ; Start 05/02/18 at 21:45; Stop 05/02/18 at 22:14; Status DC Lorazepam (Ativan) 2 mg 1X ONCE IM Last administered on 05/02/18at 22:05; Start 05/02/18 at 21:45; Stop 05/02/18 at 22:14; Status DC Cephalexin HCl (Keflex) 500 mg TID PO Last administered on 05/05/18at 12:53; Start 05/03/18 at 09:00; Stop 05/05/18 at 16:29; Status DC Multi-Ingredient Ointment (Analgesic [place]) 1 saqib PRN QID PRN TP MUSCLE PAIN; Start 05/03/18 at 02:00 Al Hydroxide/Mg Hydroxide (Mylanta Plus Xs) 15 ml PRN AFTMEALHC PRN PO DYSPEPSIA; Start 05/03/18 at 02:00 Magnesium Hydroxide (Milk Of Magnesia) 2,400 mg PRN QHS PRN PO CONSTIPATION; Start 05/03/18 at 02:00 Lorazepam (Ativan) 1 mg HS PO Last administered on 05/08/18at 19:50; Start 05/03 at 21:00 Lorazepam (Ativan) 1 mg PRN TID PRN PO ANXIETY / AGITATION Last administered on 05/07/18at 10:34; Start 05/03/18 at 02:00 Divalproex Sodium (Depakote Sprinkles) 1,000 mg BID PO Last administered on at 08:10; Start 05/03/18 at 09:00; Stop 05/03/18 at 19:52; Status DC Polyethylene Glycol (miraLAX) 17 gm DAILY PO Last administered on 05/08/18at 08: 39; Start 05/03/18 at 09:00 Thiamine HCl (Vitamin B-1) 100 mg DAILY PO Last administered on 05/08/18 08:38 ; Start 05/03/18 at 09:00 Divalproex Sodium (Depakote Sprinkles) 1,000 mg DAILY PO Last administered on 08:39; Start 05/04/18 at 09:00 Divalproex Sodium (Depakote Sprinkles) 500 mg HS PO Last administered on 19:51; Start 05/04/18 at 21:00 Lactobacillus Rhamnosus (Culturelle) 1 cap BID PO Last administered on 19:50; Start 05/04/18 at 09:00 Folic Acid (Folic Acid) 1 mg DAILY PO Last administered on 05/08/18 08:39; Start 05/05/18 at 09:00 Sertraline HCl (Zoloft) 25 mg DAILY PO Last administered on 05/07/18 07:51; Start 05/05/18 at 09:00; Stop 05/07/18 at 09:01; Status DC Sertraline HCl (Zoloft) 50 mg DAILY PO Last administered on 05/08/18 08:40; Start 05/08/18 at 09:00 Betamethasone/ Clotrimazole (Lotrisone) 1 saqib BID TP Last administered on 19:51; Start 05/06/18 at 21:00; Stop 05/14/18 at 20:59 Mirtazapine (Remeron) 7.5 mg QHS PO Last administered on 05/08/18 19:51; Start 05/06/18 at 21:00 Active Scripts Active Reported Ativan (Lorazepam) 1 Mg Tablet 1 Mg PO PRN TID PRN Depakote Sprinkle (Divalproex Sodium) 125 Mg Cap.sprink 1,000 Mg PO BID Ativan (Lorazepam) 1 Mg Tablet 1 Mg PO HS Tylenol (Acetaminophen) 325 Mg Tablet 650 Mg PO PRN Q6HRS PRN Miralax (Polyethylene Glycol 3350) 17 Gm Powd.pack 1 Packet PO DAILY Vitamin B-1 (Thiamine Hcl) 100 Mg Tablet 100 Mg PO DAILY I have reviewed the current psychotropics carefully including drug interactions. Risk benefit ratio favors no change other than as noted in my dictated progress note. 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
[2018-05-09 06:20] VITALS: BP 110/76
[2018-05-09] MEDS: LACTOBACILLUS RHAMNOSUS GG 1 CAPSULE. PO SCH ×2 (07:41→20:20)
[2018-05-09] MEDS: DIVALPROEX 125 MG CAP.SPRINK PO SCH ×2 (07:41→20:21)
[2018-05-09] MEDS: THIAMINE 100 MG TABLET. PO SCH (07:41)
[2018-05-09] MEDS: POLYETHYLENE GLYCOL 3350 17 GM PACKET. PO SCH (07:41)
[2018-05-09] MEDS: CLOTRIMAZOLE/BETAMETH 1%-0.05% TOPICAL CREAM 15GM TUBE. TP SCH ×2 (07:42→20:25)
[2018-05-09] MEDS: SERTRALINE 50 MG TABLET. PO SCH (07:42)
[2018-05-09] MEDS: FOLIC ACID 1 MG TABLET PO SCH (07:42)
[2018-05-09 15:54] VITALS: BP 107/76
[2018-05-09] MEDS: LORazepam 1 MG TABLET PO SCH (20:20)
[2018-05-09] MEDS: MIRTAZAPINE 7.5 MG TABLET. PO SCH (20:25)
--- NOTE | 2018-05-09 21:55 | PDOC ---
Exam Note: Jose Note: Please also refer to the separate dictated note~for this date of service dictated separately.~Patient seen individually. Discussed the patient with Nursing staff reviewed the chart.~Reviewed interim history and current functioning. Reviewed vital signs,~Labs/ Radiology~and current medications noted below. Continue current treatment with the changes noted in the dictated addendum note Assessment: Vital Signs: Vital Signs Date Time Temp Pulse Resp B/P (MAP) Pulse Ox O2 Delivery O2 Flow Rate FiO2 05/09/18 15:54 97.3 71 16 107/76 (86) 97 Room Air I&O Intake and Output 05/09/18 06:59 Intake Total 600 ml Balance 600 ml Intake Oral 600 ml # Voids 1 Current Medications: Meds: Current Medications Lactated Ringer's 1,000 ml @ 100 mls/hr Q10H IV Last administered on at 18:38; Start 05/02/18 at 18:38; Stop 05/03/18 at 04:37; Status DC Lorazepam (Ativan) 2 mg 1X ONCE PO Last administered on 05/02/18at 20:30; Start 05/02/18 at 20:30; Stop 05/02/18 at 20:31; Status DC Diphenhydramine HCl (Benadryl Oral Elixir) 50 mg 1X ONCE PO Last administered on 05/02/18at 20:30; Start 05/02/18 at 20:30; Stop 05/02/18 at 20:31; Status DC Cephalexin HCl (Keflex) 500 mg 1X ONCE PO Last administered on 05/03/18at 08:10 ; Start 05/02/18 at 21:45; Stop 05/02/18 at 21:46; Status DC Acetaminophen (Tylenol) 650 mg PRN Q4HRS PRN PO FEVER; Start 05/02/18 at 21:30 ; Stop 05/03/18 at 21:29; Status DC Cephalexin HCl (Keflex) 500 mg 1X ONCE PO ; Start 05/02/18 at 22:15; Stop 05/02 at 22:16; Status DC Ziprasidone (Geodon Im) 20 mg 1X ONCE IM Last administered on 05/02/18at 22:06 ; Start 05/02/18 at 21:45; Stop 05/02/18 at 22:14; Status DC Lorazepam (Ativan) 2 mg 1X ONCE IM Last administered on 05/02/18 22:05; Start 05/02/18 at 21:45; Stop 05/02/18 at 22:14; Status DC Cephalexin HCl (Keflex) 500 mg TID PO Last administered on 05/05/18 12:53; Start 05/03/18 at 09:00; Stop 05/05/18 at 16:29; Status DC Multi-Ingredient Ointment (Analgesic [place]) 1 saqib PRN QID PRN TP MUSCLE PAIN; Start 05/03/18 at 02:00 Al Hydroxide/Mg Hydroxide (Mylanta Plus Xs) 15 ml PRN AFTMEALHC PRN PO DYSPEPSIA; Start 05/03/18 at 02:00 Magnesium Hydroxide (Milk Of Magnesia) 2,400 mg PRN QHS PRN PO CONSTIPATION; Start 05/03/18 at 02:00 Lorazepam (Ativan) 1 mg HS PO Last administered on 05/09/18 20:20; Start at 21:00 Lorazepam (Ativan) 1 mg PRN TID PRN PO ANXIETY / AGITATION Last administered on 05/07/18 10:34; Start 05/03/18 at 02:00 Divalproex Sodium (Depakote Sprinkles) 1,000 mg BID PO Last administered on 08:10; Start 05/03/18 at 09:00; Stop 05/03/18 at 19:52; Status DC Polyethylene Glycol (miraLAX) 17 gm DAILY PO Last administered on 05/09/18 07: 41; Start 05/03/18 at 09:00 Thiamine HCl (Vitamin B-1) 100 mg DAILY PO Last administered on 05/09/18 07:41 ; Start 05/03/18 at 09:00 Divalproex Sodium (Depakote Sprinkles) 1,000 mg DAILY PO Last administered on 07:41; Start 05/04/18 at 09:00 Divalproex Sodium (Depakote Sprinkles) 500 mg HS PO Last administered on 20:21; Start 05/04/18 at 21:00 Lactobacillus Rhamnosus (Culturelle) 1 cap BID PO Last administered on 20:20; Start 05/04/18 at 09:00 Folic Acid (Folic Acid) 1 mg DAILY PO Last administered on 05/09/18 07:42; Start 05/05/18 at 09:00 Sertraline HCl (Zoloft) 25 mg DAILY PO Last administered on 05/07/18 07:51; Start 05/05/18 at 09:00; Stop 05/07/18 at 09:01; Status DC Sertraline HCl (Zoloft) 50 mg DAILY PO Last administered on 05/09/18 07:42; Start 05/08/18 at 09:00 Betamethasone/ Clotrimazole (Lotrisone) 1 saqib BID TP Last administered on 20:25; Start 05/06/18 at 21:00; Stop 05/14/18 at 20:59 Mirtazapine (Remeron) 7.5 mg QHS PO Last administered on 05/09/18 20:25; Start 05/06/18 at 21:00 Active Scripts Active Reported Ativan (Lorazepam) 1 Mg Tablet 1 Mg PO PRN TID PRN Depakote Sprinkle (Divalproex Sodium) 125 Mg Cap.sprink 1,000 Mg PO BID Ativan (Lorazepam) 1 Mg Tablet 1 Mg PO HS Tylenol (Acetaminophen) 325 Mg Tablet 650 Mg PO PRN Q6HRS PRN Miralax (Polyethylene Glycol 3350) 17 Gm Powd.pack 1 Packet PO DAILY Vitamin B-1 (Thiamine Hcl) 100 Mg Tablet 100 Mg PO DAILY I have reviewed the current psychotropics carefully including drug interactions. Risk benefit ratio favors no change other than as noted in my dictated progress note. 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
--- NOTE | 2018-05-09 23:13 | PN ---
DATE: 05/07/2018 PSYCHIATRIC PROGRESS NOTE This is a late entry 05/07/2018 covers elements not covered in my initial note. SUBJECTIVE: I met with the patient in the evening. The patient slept 6-1/4 hours previous night. She is confused, sat on another patient's bed and this patient got extremely agitated. She was totally oblivious of it. Takes meds, crushed, smearing her feces on the ground, walking over it and putting it in her mouth, but totally oblivious of what she was doing. REVIEW OF SYSTEMS: No CV, , pulmonary, eye, ENT system symptoms on review. Reliability poor. MENTAL STATUS EXAM: Oriented to herself. Insight, judgment, recent and remote memory, attention, concentration, fund of knowledge poor, consistent with her diagnosis mentioned in my initial note. PLAN: No change from initial note. MAN Joann CARTAGENA MD DR: AARON/ann JOB#: [id number] / [id number]
--- NOTE | 2018-05-09 23:15 | PN ---
DATE: 05/08/2018 PSYCHIATRIC PROGRESS NOTE This late entry 05/08/2018 covers elements not covered in my initial note. SUBJECTIVE: Met with the patient in the evening and staffed at a treatment team meeting with the entire team earlier in the day and the patient's daughter, Mckenna, attended the conference. We reviewed the patient's history of severe alcohol abuse. Her current Korsakoff' diagnosis, confusion episode described in my note of 05/07/2018 was discussed. She slept 4-1/4 hours. Appetite is 50%. REVIEW OF SYSTEMS: No CV, , pulmonary, eye, ENT system symptoms on review. Reliability is poor. MENTAL STATUS EXAM: Oriented to herself. Insight, judgment, recent and remote memory, attention, concentration, fund of knowledge is poor, consistent with her diagnoses mentioned in my initial note. PLAN: No change from initial note but we may need to adjust the Depakote as tolerated and may need to start an atypical antipsychotic as well. I am trying to avoid it given her diagnoses, but she is quite psychotic. MAN Joann CARTAGENA MD DR: AARON/ann JOB#: [id number] / [id number]
[2018-05-10 05:41] VITALS: BP 125/80
[2018-05-10] MEDS: DIVALPROEX 125 MG CAP.SPRINK PO SCH ×2 (07:59→19:43)
[2018-05-10] MEDS: POLYETHYLENE GLYCOL 3350 17 GM PACKET. PO SCH (07:59)
[2018-05-10] MEDS: FOLIC ACID 1 MG TABLET PO SCH (07:59)
[2018-05-10] MEDS: SERTRALINE 50 MG TABLET. PO SCH (07:59)
[2018-05-10] MEDS: LACTOBACILLUS RHAMNOSUS GG 1 CAPSULE. PO SCH ×2 (07:59→19:42)
[2018-05-10] MEDS: THIAMINE 100 MG TABLET. PO SCH (07:59)
[2018-05-10] MEDS: CLOTRIMAZOLE/BETAMETH 1%-0.05% TOPICAL CREAM 15GM TUBE. TP SCH ×2 (08:00→19:43)
[2018-05-10 15:37] VITALS: BP 129/70
[2018-05-10] MEDS: MIRTAZAPINE 7.5 MG TABLET. PO SCH (19:42)
[2018-05-10] MEDS: LORazepam 1 MG TABLET PO SCH (19:42)
--- NOTE | 2018-05-10 21:58 | PDOC ---
Exam Note: Jose Note: Please also refer to the separate dictated note~for this date of service dictated separately.~Patient seen individually. Discussed the patient with Nursing staff reviewed the chart.~Reviewed interim history and current functioning. Reviewed vital signs,~Labs/ Radiology~and current medications noted below. Continue current treatment with the changes noted in the dictated addendum note Assessment: Vital Signs: Vital Signs Date Time Temp Pulse Resp B/P (MAP) Pulse Ox O2 Delivery O2 Flow Rate FiO2 05/10/18 15:37 97.8 81 16 129/70 (89) 98 05/10/18 05:41 Room Air I&O Intake and Output 05/10/18 06:59 Intake Total 700 ml Balance 700 ml Intake Oral 700 ml Current Medications: Meds: Current Medications Lactated Ringer's 1,000 ml @ 100 mls/hr Q10H IV Last administered on 18:38; Start 05/02/18 at 18:38; Stop 05/03/18 at 04:37; Status DC Lorazepam (Ativan) 2 mg 1X ONCE PO Last administered on 05/02/18at 20:30; Start 05/02/18 at 20:30; Stop 05/02/18 at 20:31; Status DC Diphenhydramine HCl (Benadryl Oral Elixir) 50 mg 1X ONCE PO Last administered on 05/02/18at 20:30; Start 05/02/18 at 20:30; Stop 05/02/18 at 20:31; Status DC Cephalexin HCl (Keflex) 500 mg 1X ONCE PO Last administered on 05/03/18at 08:10 ; Start 05/02/18 at 21:45; Stop 05/02/18 at 21:46; Status DC Acetaminophen (Tylenol) 650 mg PRN Q4HRS PRN PO FEVER; Start 05/02/18 at 21:30 ; Stop 05/03/18 at 21:29; Status DC Cephalexin HCl (Keflex) 500 mg 1X ONCE PO ; Start 05/02/18 at 22:15; Stop 05/02 at 22:16; Status DC Ziprasidone (Geodon Im) 20 mg 1X ONCE IM Last administered on 05/02/18at 22:06 ; Start 05/02/18 at 21:45; Stop 05/02/18 at 22:14; Status DC Lorazepam (Ativan) 2 mg 1X ONCE IM Last administered on 05/02/18 22:05; Start 05/02/18 at 21:45; Stop 05/02/18 at 22:14; Status DC Cephalexin HCl (Keflex) 500 mg TID PO Last administered on 05/05/18 12:53; Start 05/03/18 at 09:00; Stop 05/05/18 at 16:29; Status DC Multi-Ingredient Ointment (Analgesic [place]) 1 saqib PRN QID PRN TP MUSCLE PAIN; Start 05/03/18 at 02:00 Al Hydroxide/Mg Hydroxide (Mylanta Plus Xs) 15 ml PRN AFTMEALHC PRN PO DYSPEPSIA; Start 05/03/18 at 02:00 Magnesium Hydroxide (Milk Of Magnesia) 2,400 mg PRN QHS PRN PO CONSTIPATION; Start 05/03/18 at 02:00 Lorazepam (Ativan) 1 mg HS PO Last administered on 05/10/18 19:42; Start at 21:00 Lorazepam (Ativan) 1 mg PRN TID PRN PO ANXIETY / AGITATION Last administered on 05/07/18 10:34; Start 05/03/18 at 02:00 Divalproex Sodium (Depakote Sprinkles) 1,000 mg BID PO Last administered on 08:10; Start 05/03/18 at 09:00; Stop 05/03/18 at 19:52; Status DC Polyethylene Glycol (miraLAX) 17 gm DAILY PO Last administered on 05/10/18 07: 59; Start 05/03/18 at 09:00 Thiamine HCl (Vitamin B-1) 100 mg DAILY PO Last administered on 05/10/18 07:59 ; Start 05/03/18 at 09:00 Divalproex Sodium (Depakote Sprinkles) 1,000 mg DAILY PO Last administered on 07:59; Start 05/04/18 at 09:00 Divalproex Sodium (Depakote Sprinkles) 500 mg HS PO Last administered on 19:43; Start 05/04/18 at 21:00 Lactobacillus Rhamnosus (Culturelle) 1 cap BID PO Last administered on 19:42; Start 05/04/18 at 09:00 Folic Acid (Folic Acid) 1 mg DAILY PO Last administered on 05/10/18 07:59; Start 05/05/18 at 09:00 Sertraline HCl (Zoloft) 25 mg DAILY PO Last administered on 05/07/18 07:51; Start 05/05/18 at 09:00; Stop 05/07/18 at 09:01; Status DC Sertraline HCl (Zoloft) 50 mg DAILY PO Last administered on 05/10/18 07:59; Start 05/08/18 at 09:00 Betamethasone/ Clotrimazole (Lotrisone) 1 saqib BID TP Last administered on 19:43; Start 05/06/18 at 21:00; Stop 05/14/18 at 20:59 Mirtazapine (Remeron) 7.5 mg QHS PO Last administered on 05/10/18 19:42; Start 05/06/18 at 21:00 Active Scripts Active Reported Ativan (Lorazepam) 1 Mg Tablet 1 Mg PO PRN TID PRN Depakote Sprinkle (Divalproex Sodium) 125 Mg Cap.sprink 1,000 Mg PO BID Ativan (Lorazepam) 1 Mg Tablet 1 Mg PO HS Tylenol (Acetaminophen) 325 Mg Tablet 650 Mg PO PRN Q6HRS PRN Miralax (Polyethylene Glycol 3350) 17 Gm Powd.pack 1 Packet PO DAILY Vitamin B-1 (Thiamine Hcl) 100 Mg Tablet 100 Mg PO DAILY I have reviewed the current psychotropics carefully including drug interactions. Risk benefit ratio favors no change other than as noted in my dictated progress note. 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
[2018-05-11 05:58] VITALS: BP 124/93
[2018-05-11] MEDS: FOLIC ACID 1 MG TABLET PO SCH (08:11)
[2018-05-11] MEDS: LACTOBACILLUS RHAMNOSUS GG 1 CAPSULE. PO SCH ×2 (08:11→19:49)
[2018-05-11] MEDS: DIVALPROEX 125 MG CAP.SPRINK PO SCH ×2 (08:11→19:49)
[2018-05-11] MEDS: THIAMINE 100 MG TABLET. PO SCH (08:12)
[2018-05-11] MEDS: SERTRALINE 50 MG TABLET. PO SCH (08:12)
[2018-05-11] MEDS: POLYETHYLENE GLYCOL 3350 17 GM PACKET. PO SCH (08:12)
[2018-05-11] MEDS: CLOTRIMAZOLE/BETAMETH 1%-0.05% TOPICAL CREAM 15GM TUBE. TP SCH ×2 (08:55→19:51)
[2018-05-11 11:27] LABS: BASO % 0 % (0-3); EOS # 0.2 x10^3/uL (0.0-0.7); EOS % 3 % (0-3); HEMATOCRIT 44.1 % (36.0-47.0); HEMOGLOBIN 14.6 g/dL (12.0-15.5); LYMPH % 30 % (24-48); MEAN CORPUSCULAR HEMOGLOBIN 32 pg (25-35); MEAN CORPUSCULAR HGB CONC 33 g/dL (31-37); MEAN CORPUSCULAR VOLUME 98 fL (79-100); MONO # 1.1 x10^3/uL (0.0-1.1); MONO % 17 % (0-9); NEUT # 3.3 x10^3uL (1.8-7.7); NEUT % 50 % (31-73); PLATELET COUNT 124 x10^3/uL (140-400); RED BLOOD COUNT 4.52 x10^6/uL (3.50-5.40); RED CELL DISTRIBUTION WIDTH 17.1 % (11.5-14.5); WHITE BLOOD COUNT 6.6 x10^3/uL (4.0-11.0)
[2018-05-11 11:39] LABS: ALBUMIN 3.2 g/dL (3.4-5.0); ALBUMIN/GLOBULIN RATIO 0.8 (1.0-1.7); CALCIUM 9.5 mg/dL (8.5-10.1); CREATININE 0.9 mg/dL (0.6-1.0); GFR 64.5; POTASSIUM 3.8 mmol/L (3.5-5.1); TOTAL BILIRUBIN 0.5 mg/dL (0.2-1.0); TOTAL PROTEIN 7.2 g/dL (6.4-8.2)
[2018-05-11 16:11] VITALS: BP 108/75
[2018-05-11] MEDS ORDERED: ACETAMINOPHEN 325 MG TABLET PO PRN (18:00)
[2018-05-11] MEDS: LORazepam 1 MG TABLET PO SCH (19:49)
[2018-05-11] MEDS: MIRTAZAPINE 7.5 MG TABLET. PO SCH (19:50)
--- NOTE | 2018-05-11 22:45 | PDOC ---
Exam Note: Jose Note: Please also refer to the separate dictated note~for this date of service dictated separately.~Patient seen individually. Discussed the patient with Nursing staff reviewed the chart.~Reviewed interim history and current functioning. Reviewed vital signs,~Labs/ Radiology~and current medications noted below. Continue current treatment with the changes noted in the dictated addendum note Assessment: Vital Signs: Vital Signs Date Time Temp Pulse Resp B/P (MAP) Pulse Ox O2 Delivery O2 Flow Rate FiO2 05/11/18 16:11 97.6 84 18 108/75 (86) 95 05/10/18 05:41 Room Air I&O Intake and Output 05/11/18 07:00 Intake Total 720 ml Balance 720 ml Intake Oral 720 ml Labs: Laboratory Tests Test 05/11/18 11:08 White Blood Count 6.6 x10^3/uL (4.0-11.0) Red Blood Count 4.52 x10^6/uL (3.50-5.40) Hemoglobin 14.6 g/dL (12.0-15.5) Hematocrit 44.1 % (36.0-47.0) Mean Corpuscular Volume 98 fL (79-100) Mean Corpuscular Hemoglobin 32 pg (25-35) Mean Corpuscular Hemoglobin Concent 33 g/dL (31-37) Red Cell Distribution Width 17.1 % (11.5-14.5) H Platelet Count 124 x10^3/uL (140-400) L Neutrophils (%) (Auto) 50 % (31-73) Lymphocytes (%) (Auto) 30 % (24-48) Monocytes (%) (Auto) 17 % (0-9) H Eosinophils (%) (Auto) 3 % (0-3) Basophils (%) (Auto) 0 % (0-3) Neutrophils # (Auto) 3.3 x10^3uL (1.8-7.7) Lymphocytes # (Auto) 2.0 x10^3/uL (1.0-4.8) Monocytes # (Auto) 1.1 x10^3/uL (0.0-1.1) Eosinophils # (Auto) 0.2 x10^3/uL (0.0-0.7) Basophils # (Auto) 0.0 x10^3/uL (0.0-0.2) Sodium Level 148 mmol/L (136-145) H Potassium Level 3.8 mmol/L (3.5-5.1) Chloride Level 111 mmol/L (98-107) H Carbon Dioxide Level 32 mmol/L (21-32) Anion Gap 5 (6-14) L Blood Urea Nitrogen 12 mg/dL (7-20) Creatinine 0.9 mg/dL (0.6-1.0) Estimated GFR (Cockcroft-Gault) 64.5 BUN/Creatinine Ratio 13 (6-20) Glucose Level 93 mg/dL (70-99) Calcium Level 9.5 mg/dL (8.5-10.1) Total Bilirubin 0.5 mg/dL (0.2-1.0) Aspartate Amino Transferase (AST) 21 U/L (15-37) Alanine Aminotransferase (ALT) 15 U/L (14-59) Alkaline Phosphatase 59 U/L (46-116) Total Protein 7.2 g/dL (6.4-8.2) Albumin 3.2 g/dL (3.4-5.0) L Albumin/Globulin Ratio 0.8 (1.0-1.7) L Current Medications: Meds: Current Medications Lactated Ringer's 1,000 ml @ 100 mls/hr Q10H IV Last administered on at 18:38; Start 05/02/18 at 18:38; Stop 05/03/18 at 04:37; Status DC Lorazepam (Ativan) 2 mg 1X ONCE PO Last administered on 05/02/18at 20:30; Start 05/02/18 at 20:30; Stop 05/02/18 at 20:31; Status DC Diphenhydramine HCl (Benadryl Oral Elixir) 50 mg 1X ONCE PO Last administered on 05/02/18at 20:30; Start 05/02/18 at 20:30; Stop 05/02/18 at 20:31; Status DC Cephalexin HCl (Keflex) 500 mg 1X ONCE PO Last administered on 05/03/18at 08:10 ; Start 05/02/18 at 21:45; Stop 05/02/18 at 21:46; Status DC Acetaminophen (Tylenol) 650 mg PRN Q4HRS PRN PO FEVER; Start 05/02/18 at 21:30 ; Stop 05/03/18 at 21:29; Status DC Cephalexin HCl (Keflex) 500 mg 1X ONCE PO ; Start 05/02/18 at 22:15; Stop 05/02 at 22:16; Status DC Ziprasidone (Geodon Im) 20 mg 1X ONCE IM Last administered on 05/02/18at 22:06 ; Start 05/02/18 at 21:45; Stop 05/02/18 at 22:14; Status DC Lorazepam (Ativan) 2 mg 1X ONCE IM Last administered on 05/02/18at 22:05; Start 05/02/18 at 21:45; Stop 05/02/18 at 22:14; Status DC Cephalexin HCl (Keflex) 500 mg TID PO Last administered on 05/05/18at 12:53; Start 05/03/18 at 09:00; Stop 05/05/18 at 16:29; Status DC Multi-Ingredient Ointment (Analgesic [place]) 1 saqib PRN QID PRN TP MUSCLE PAIN; Start 05/03/18 at 02:00 Al Hydroxide/Mg Hydroxide (Mylanta Plus Xs) 15 ml PRN AFTMEALHC PRN PO DYSPEPSIA; Start 05/03/18 at 02:00 Magnesium Hydroxide (Milk Of Magnesia) 2,400 mg PRN QHS PRN PO CONSTIPATION; Start 05/03/18 at 02:00 Lorazepam (Ativan) 1 mg HS PO Last administered on 05/11/18 19:49; Start at 21:00 Lorazepam (Ativan) 1 mg PRN TID PRN PO ANXIETY / AGITATION Last administered on 05/07/18at 10:34; Start 05/03/18 at 02:00 Divalproex Sodium (Depakote Sprinkles) 1,000 mg BID PO Last administered on 08:10; Start 05/03/18 at 09:00; Stop 05/03/18 at 19:52; Status DC Polyethylene Glycol (miraLAX) 17 gm DAILY PO Last administered on 05/11/18 08: 12; Start 05/03/18 at 09:00 Thiamine HCl (Vitamin B-1) 100 mg DAILY PO Last administered on 05/11/18 08:12 ; Start 05/03/18 at 09:00 Divalproex Sodium (Depakote Sprinkles) 1,000 mg DAILY PO Last administered on 08:11; Start 05/04/18 at 09:00 Divalproex Sodium (Depakote Sprinkles) 500 mg HS PO Last administered on 19:49; Start 05/04/18 at 21:00 Lactobacillus Rhamnosus (Culturelle) 1 cap BID PO Last administered on 19:49; Start 05/04/18 at 09:00 Folic Acid (Folic Acid) 1 mg DAILY PO Last administered on 05/11/18 08:11; Start 05/05/18 at 09:00 Sertraline HCl (Zoloft) 25 mg DAILY PO Last administered on 05/07/18 07:51; Start 05/05/18 at 09:00; Stop 05/07/18 at 09:01; Status DC Sertraline HCl (Zoloft) 50 mg DAILY PO Last administered on 05/11/18 08:12; Start 05/08/18 at 09:00 Betamethasone/ Clotrimazole (Lotrisone) 1 saqib BID TP Last administered on 19:51; Start 05/06/18 at 21:00; Stop 05/14/18 at 20:59 Mirtazapine (Remeron) 7.5 mg QHS PO Last administered on 05/11/18 19:50; Start 05/06/18 at 21:00 Acetaminophen (Tylenol) 650 mg PRN Q6HRS PRN PO PAIN / TEMP Last administered on 05/11/18 18:00; Start 05/11/18 at 18:00 Active Scripts Active Reported Ativan (Lorazepam) 1 Mg Tablet 1 Mg PO PRN TID PRN Depakote Sprinkle (Divalproex Sodium) 125 Mg Cap.sprink 1,000 Mg PO BID Ativan (Lorazepam) 1 Mg Tablet 1 Mg PO HS Tylenol (Acetaminophen) 325 Mg Tablet 650 Mg PO PRN Q6HRS PRN Miralax (Polyethylene Glycol 3350) 17 Gm Powd.pack 1 Packet PO DAILY Vitamin B-1 (Thiamine Hcl) 100 Mg Tablet 100 Mg PO DAILY I have reviewed the current psychotropics carefully including drug interactions. Risk benefit ratio favors no change other than as noted in my dictated progress note. 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
--- NOTE | 2018-05-11 23:40 | PN ---
DATE: 05/09/2018 PSYCHIATRIC PROGRESS NOTE This late entry 05/09/2018 covers elements not covered in my initial note. SUBJECTIVE: I met with the patient in the evening. The patient slept 3-3/4 hours previous night. The patient is disorganized, takes her meds crushed, totally oblivious of her surroundings. REVIEW OF SYSTEMS: No CV, , pulmonary, eye, ENT system symptoms on review. Reliability poor. MENTAL STATUS EXAM: Oriented to herself. Insight, judgment, recent and remote memory, attention, concentration, fund of knowledge poor, consistent with her diagnosis mentioned in my initial note. PLAN: No change from initial note. MAN Joann CARTAGENA MD DR: AARON/ann JOB#: [id number] / [id number]
[2018-05-12 05:49] VITALS: BP 108/67
[2018-05-12] MEDS: THIAMINE 100 MG TABLET. PO SCH (08:01)
[2018-05-12] MEDS: DIVALPROEX 125 MG CAP.SPRINK PO SCH ×2 (08:01→21:12)
[2018-05-12] MEDS: FOLIC ACID 1 MG TABLET PO SCH (08:01)
[2018-05-12] MEDS: POLYETHYLENE GLYCOL 3350 17 GM PACKET. PO SCH (08:01)
[2018-05-12] MEDS: LACTOBACILLUS RHAMNOSUS GG 1 CAPSULE. PO SCH ×2 (08:01→21:12)
[2018-05-12] MEDS: SERTRALINE 50 MG TABLET. PO SCH (08:02)
[2018-05-12] MEDS: CLOTRIMAZOLE/BETAMETH 1%-0.05% TOPICAL CREAM 15GM TUBE. TP SCH ×2 (09:00→21:12)
[2018-05-12] MEDS: LORazepam 1 MG TABLET PO PRN (13:34)
[2018-05-12 16:08] VITALS: BP 103/72
[2018-05-12] MEDS: LORazepam 1 MG TABLET PO SCH (21:12)
[2018-05-12] MEDS: MIRTAZAPINE 15 MG TABLET PO SCH (21:13)
--- NOTE | 2018-05-12 22:29 | PDOC ---
Exam Note: Jose Note: Please also refer to the separate dictated note~for this date of service dictated separately.~Patient seen individually. Discussed the patient with Nursing staff reviewed the chart.~Reviewed interim history and current functioning. Reviewed vital signs,~Labs/ Radiology~and current medications noted below. Continue current treatment with the changes noted in the dictated addendum note Assessment: Vital Signs: Vital Signs Date Time Temp Pulse Resp B/P (MAP) Pulse Ox O2 Delivery O2 Flow Rate FiO2 05/12/18 16:08 98.1 109 18 103/72 (82) 96 05/10/18 05:41 Room Air I&O Intake and Output 05/12/18 07:00 Intake Total 1320 ml Balance 1320 ml Intake Oral 1320 ml Current Medications: Meds: Current Medications Lactated Ringer's 1,000 ml @ 100 mls/hr Q10H IV Last administered on 18:38; Start 05/02/18 at 18:38; Stop 05/03/18 at 04:37; Status DC Lorazepam (Ativan) 2 mg 1X ONCE PO Last administered on 05/02/18at 20:30; Start 05/02/18 at 20:30; Stop 05/02/18 at 20:31; Status DC Diphenhydramine HCl (Benadryl Oral Elixir) 50 mg 1X ONCE PO Last administered on 05/02/18at 20:30; Start 05/02/18 at 20:30; Stop 05/02/18 at 20:31; Status DC Cephalexin HCl (Keflex) 500 mg 1X ONCE PO Last administered on 05/03/18 08:10 ; Start 05/02/18 at 21:45; Stop 05/02/18 at 21:46; Status DC Acetaminophen (Tylenol) 650 mg PRN Q4HRS PRN PO FEVER; Start 05/02/18 at 21:30 ; Stop 05/03/18 at 21:29; Status DC Cephalexin HCl (Keflex) 500 mg 1X ONCE PO ; Start 05/02/18 at 22:15; Stop 05/02 at 22:16; Status DC Ziprasidone (Geodon Im) 20 mg 1X ONCE IM Last administered on 05/02/18at 22:06 ; Start 05/02/18 at 21:45; Stop 05/02/18 at 22:14; Status DC Lorazepam (Ativan) 2 mg 1X ONCE IM Last administered on 05/02/18 22:05; Start 05/02/18 at 21:45; Stop 05/02/18 at 22:14; Status DC Cephalexin HCl (Keflex) 500 mg TID PO Last administered on 05/05/18 12:53; Start 05/03/18 at 09:00; Stop 05/05/18 at 16:29; Status DC Multi-Ingredient Ointment (Analgesic [place]) 1 saqib PRN QID PRN TP MUSCLE PAIN; Start 05/03/18 at 02:00 Al Hydroxide/Mg Hydroxide (Mylanta Plus Xs) 15 ml PRN AFTMEALHC PRN PO DYSPEPSIA; Start 05/03/18 at 02:00 Magnesium Hydroxide (Milk Of Magnesia) 2,400 mg PRN QHS PRN PO CONSTIPATION; Start 05/03/18 at 02:00 Lorazepam (Ativan) 1 mg HS PO Last administered on 05/12/18 21:12; Start at 21:00 Lorazepam (Ativan) 1 mg PRN TID PRN PO ANXIETY / AGITATION Last administered on 05/12/18 13:34; Start 05/03/18 at 02:00 Divalproex Sodium (Depakote Sprinkles) 1,000 mg BID PO Last administered on 08:10; Start 05/03/18 at 09:00; Stop 05/03/18 at 19:52; Status DC Polyethylene Glycol (miraLAX) 17 gm DAILY PO Last administered on 05/12/18 08: 01; Start 05/03/18 at 09:00 Thiamine HCl (Vitamin B-1) 100 mg DAILY PO Last administered on 05/12/18 08:01 ; Start 05/03/18 at 09:00 Divalproex Sodium (Depakote Sprinkles) 1,000 mg DAILY PO Last administered on 08:01; Start 05/04/18 at 09:00 Divalproex Sodium (Depakote Sprinkles) 500 mg HS PO Last administered on 21:12; Start 05/04/18 at 21:00 Lactobacillus Rhamnosus (Culturelle) 1 cap BID PO Last administered on 21:12; Start 05/04/18 at 09:00 Folic Acid (Folic Acid) 1 mg DAILY PO Last administered on 05/12/18 08:01; Start 05/05/18 at 09:00 Sertraline HCl (Zoloft) 25 mg DAILY PO Last administered on 05/07/18 07:51; Start 05/05/18 at 09:00; Stop 05/07/18 at 09:01; Status DC Sertraline HCl (Zoloft) 50 mg DAILY PO Last administered on 05/12/18 08:02; Start 05/08/18 at 09:00 Betamethasone/ Clotrimazole (Lotrisone) 1 saqib BID TP Last administered on 21:12; Start 05/06/18 at 21:00; Stop 05/14/18 at 20:59 Mirtazapine (Remeron) 7.5 mg QHS PO Last administered on 05/11/18 19:50; Start 05/06/18 at 21:00; Stop 05/12/18 at 18:16; Status DC Acetaminophen (Tylenol) 650 mg PRN Q6HRS PRN PO PAIN / TEMP Last administered on 05/11/18 18:00; Start 05/11/18 at 18:00 Mirtazapine (Remeron) 15 mg QHS PO Last administered on 05/12/18 21:13; Start 05/12/18 at 21:00 Active Scripts Active Reported Ativan (Lorazepam) 1 Mg Tablet 1 Mg PO PRN TID PRN Depakote Sprinkle (Divalproex Sodium) 125 Mg Cap.sprink 1,000 Mg PO BID Ativan (Lorazepam) 1 Mg Tablet 1 Mg PO HS Tylenol (Acetaminophen) 325 Mg Tablet 650 Mg PO PRN Q6HRS PRN Miralax (Polyethylene Glycol 3350) 17 Gm Powd.pack 1 Packet PO DAILY Vitamin B-1 (Thiamine Hcl) 100 Mg Tablet 100 Mg PO DAILY I have reviewed the current psychotropics carefully including drug interactions. Risk benefit ratio favors no change other than as noted in my dictated progress note. 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
--- NOTE | 2018-05-13 01:36 | PN ---
DATE: 05/10/2018 PSYCHIATRIC PROGRESS NOTE This late entry for 05/10/2018 covers elements not covered in my initial note. SUBJECTIVE: I met with the patient in the evening. The patient slept 7-3/4 hours previous night. She remains confused, refuses medications, anxious, labile in her mood. REVIEW OF SYSTEMS: No CV, , pulmonary, eye, ENT system symptoms on review. Reliability poor. MENTAL STATUS EXAM: Oriented to herself. Insight, judgment, recent and remote memory, attention, concentration, fund of knowledge poor, consistent with her diagnosis mentioned in my initial note. PLAN: No change from initial note. MAN Joann CARTAGENA MD DR: AARON/ann JOB#: [id number] / [id number]
--- NOTE | 2018-05-13 01:36 | PN ---
DATE: 05/11/2018 This late entry for 05/11/2018 covers elements not covered in my initial note. SUBJECTIVE: I met with the patient in the evening. The patient slept 5-3/4 hours previous night. The patient remains confused, disorganized, oriented just to herself. REVIEW OF SYSTEMS: No CV, , pulmonary, eye, ENT system symptoms on review. Reliability poor. MENTAL STATUS EXAM: Oriented to herself. Insight, judgment, recent and remote memory, attention, concentration, fund of knowledge poor, consistent with her diagnosis mentioned in my initial note. PLAN: No change from initial note. MAN Joann CARTAGENA MD DR: AARON/ann JOB#: [id number] / [id number]
[2018-05-13 05:46] VITALS: BP 113/78
[2018-05-13] MEDS: LACTOBACILLUS RHAMNOSUS GG 1 CAPSULE. PO SCH ×2 (07:56→19:44)
[2018-05-13] MEDS: POLYETHYLENE GLYCOL 3350 17 GM PACKET. PO SCH (07:56)
[2018-05-13] MEDS: DIVALPROEX 125 MG CAP.SPRINK PO SCH ×2 (07:57→19:44)
[2018-05-13] MEDS: THIAMINE 100 MG TABLET. PO SCH (07:57)
[2018-05-13] MEDS: SERTRALINE 50 MG TABLET. PO SCH (07:57)
[2018-05-13] MEDS: FOLIC ACID 1 MG TABLET PO SCH (07:57)
[2018-05-13] MEDS: CLOTRIMAZOLE/BETAMETH 1%-0.05% TOPICAL CREAM 15GM TUBE. TP SCH ×2 (14:19→19:45)
[2018-05-13 16:10] VITALS: BP 139/97
[2018-05-13] MEDS: MIRTAZAPINE 15 MG TABLET PO SCH (19:44)
[2018-05-13] MEDS: LORazepam 1 MG TABLET PO SCH (19:44)
--- NOTE | 2018-05-13 20:38 | PN ---
DATE: 05/12/2018 PSYCHIATRIC PROGRESS NOTE This late entry 05/12/2018 covers elements not covered in my initial note. SUBJECTIVE: I met with the patient in the evening. The patient slept 6 hours previous night. She remains totally disorganized, confused, wandering in the hallways, oblivious of anything around her, was agitated in the afternoon, received Ativan at 1330. She was also delusional, waiting for her sister. REVIEW OF SYSTEMS: No CV, , pulmonary, eye, ENT system symptoms on review. Reliability poor. MENTAL STATUS EXAM: Oriented to herself. Insight, judgment, recent and remote memory, attention, concentration, fund of knowledge poor, consistent with her diagnosis. 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 Rest unchanged. PLAN: Increase Remeron from 7.5 at bedtime to 15 mg at bedtime, to help with her mood, anxiety in addition to helping additionally with the sleep. Rest unchanged for now. MAN Joann CARTAGENA MD DR: AARON/ann JOB#: [id number] / [id number]
--- NOTE | 2018-05-13 22:02 | PDOC ---
Exam Note: Jose Note: Please also refer to the separate dictated note~for this date of service dictated separately.~Patient seen individually. Discussed the patient with Nursing staff reviewed the chart.~Reviewed interim history and current functioning. Reviewed vital signs,~Labs/ Radiology~and current medications noted below. Continue current treatment with the changes noted in the dictated addendum note Assessment: Vital Signs: Vital Signs Date Time Temp Pulse Resp B/P (MAP) Pulse Ox O2 Delivery O2 Flow Rate FiO2 05/13/18 16:10 97.5 86 18 139/97 (111) 99 Room Air I&O Intake and Output 05/13/18 06:59 Intake Total 540 ml Balance 540 ml Intake Oral 540 ml Current Medications: Meds: Current Medications Lactated Ringer's 1,000 ml @ 100 mls/hr Q10H IV Last administered on at 18:38; Start 05/02/18 at 18:38; Stop 05/03/18 at 04:37; Status DC Lorazepam (Ativan) 2 mg 1X ONCE PO Last administered on 05/02/18at 20:30; Start 05/02/18 at 20:30; Stop 05/02/18 at 20:31; Status DC Diphenhydramine HCl (Benadryl Oral Elixir) 50 mg 1X ONCE PO Last administered on 05/02/18at 20:30; Start 05/02/18 at 20:30; Stop 05/02/18 at 20:31; Status DC Cephalexin HCl (Keflex) 500 mg 1X ONCE PO Last administered on 05/03/18at 08:10 ; Start 05/02/18 at 21:45; Stop 05/02/18 at 21:46; Status DC Acetaminophen (Tylenol) 650 mg PRN Q4HRS PRN PO FEVER; Start 05/02/18 at 21:30 ; Stop 05/03/18 at 21:29; Status DC Cephalexin HCl (Keflex) 500 mg 1X ONCE PO ; Start 05/02/18 at 22:15; Stop 05/02 at 22:16; Status DC Ziprasidone (Geodon Im) 20 mg 1X ONCE IM Last administered on 05/02/18at 22:06 ; Start 05/02/18 at 21:45; Stop 05/02/18 at 22:14; Status DC Lorazepam (Ativan) 2 mg 1X ONCE IM Last administered on 05/02/18 22:05; Start 05/02/18 at 21:45; Stop 05/02/18 at 22:14; Status DC Cephalexin HCl (Keflex) 500 mg TID PO Last administered on 05/05/18 12:53; Start 05/03/18 at 09:00; Stop 05/05/18 at 16:29; Status DC Multi-Ingredient Ointment (Analgesic [place]) 1 saqib PRN QID PRN TP MUSCLE PAIN; Start 05/03/18 at 02:00 Al Hydroxide/Mg Hydroxide (Mylanta Plus Xs) 15 ml PRN AFTMEALHC PRN PO DYSPEPSIA; Start 05/03/18 at 02:00 Magnesium Hydroxide (Milk Of Magnesia) 2,400 mg PRN QHS PRN PO CONSTIPATION; Start 05/03/18 at 02:00 Lorazepam (Ativan) 1 mg HS PO Last administered on 05/13/18 19:44; Start at 21:00 Lorazepam (Ativan) 1 mg PRN TID PRN PO ANXIETY / AGITATION Last administered on 05/12/18 13:34; Start 05/03/18 at 02:00 Divalproex Sodium (Depakote Sprinkles) 1,000 mg BID PO Last administered on 08:10; Start 05/03/18 at 09:00; Stop 05/03/18 at 19:52; Status DC Polyethylene Glycol (miraLAX) 17 gm DAILY PO Last administered on 05/13/18 07: 56; Start 05/03/18 at 09:00 Thiamine HCl (Vitamin B-1) 100 mg DAILY PO Last administered on 05/13/18 07:57 ; Start 05/03/18 at 09:00 Divalproex Sodium (Depakote Sprinkles) 1,000 mg DAILY PO Last administered on 07:57; Start 05/04/18 at 09:00 Divalproex Sodium (Depakote Sprinkles) 500 mg HS PO Last administered on 19:44; Start 05/04/18 at 21:00 Lactobacillus Rhamnosus (Culturelle) 1 cap BID PO Last administered on 19:44; Start 05/04/18 at 09:00 Folic Acid (Folic Acid) 1 mg DAILY PO Last administered on 05/13/18 07:57; Start 05/05/18 at 09:00 Sertraline HCl (Zoloft) 25 mg DAILY PO Last administered on 05/07/18at 07:51; Start 05/05/18 at 09:00; Stop 05/07/18 at 09:01; Status DC Sertraline HCl (Zoloft) 50 mg DAILY PO Last administered on 05/13/18 07:57; Start 05/08/18 at 09:00; Stop 05/13/18 at 16:53; Status DC Betamethasone/ Clotrimazole (Lotrisone) 1 saqib BID TP Last administered on 19:45; Start 05/06/18 at 21:00; Stop 05/14/18 at 20:59 Mirtazapine (Remeron) 7.5 mg QHS PO Last administered on 05/11/18 19:50; Start 05/06/18 at 21:00; Stop 05/12/18 at 18:16; Status DC Acetaminophen (Tylenol) 650 mg PRN Q6HRS PRN PO PAIN / TEMP Last administered on 05/11/18 18:00; Start 05/11/18 at 18:00 Mirtazapine (Remeron) 15 mg QHS PO Last administered on 05/13/18 19:44; Start 05/12/18 at 21:00 Sertraline HCl (Zoloft) 75 mg DAILY PO ; Start 05/14/18 at 09:00 Active Scripts Active Reported Ativan (Lorazepam) 1 Mg Tablet 1 Mg PO PRN TID PRN Depakote Sprinkle (Divalproex Sodium) 125 Mg Cap.sprink 1,000 Mg PO BID Ativan (Lorazepam) 1 Mg Tablet 1 Mg PO HS Tylenol (Acetaminophen) 325 Mg Tablet 650 Mg PO PRN Q6HRS PRN Miralax (Polyethylene Glycol 3350) 17 Gm Powd.pack 1 Packet PO DAILY Vitamin B-1 (Thiamine Hcl) 100 Mg Tablet 100 Mg PO DAILY I have reviewed the current psychotropics carefully including drug interactions. Risk benefit ratio favors no change other than as noted in my dictated progress note. 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
[2018-05-14 05:40] VITALS: BP 110/70
[2018-05-14] MEDS: DIVALPROEX 125 MG CAP.SPRINK PO SCH ×2 (08:04→20:40)
[2018-05-14] MEDS: FOLIC ACID 1 MG TABLET PO SCH (08:04)
[2018-05-14] MEDS: THIAMINE 100 MG TABLET. PO SCH (08:04)
[2018-05-14] MEDS: POLYETHYLENE GLYCOL 3350 17 GM PACKET. PO SCH (08:04)
[2018-05-14] MEDS: LACTOBACILLUS RHAMNOSUS GG 1 CAPSULE. PO SCH ×2 (08:04→20:40)
[2018-05-14] MEDS: SERTRALINE 50 MG TABLET. PO SCH (08:07)
[2018-05-14] MEDS: CLOTRIMAZOLE/BETAMETH 1%-0.05% TOPICAL CREAM 15GM TUBE. TP SCH (08:08)
[2018-05-14 08:16] LABS: VAL ACID 76 mcg/mL (50-100)
[2018-05-14] MEDS: LORazepam 1 MG TABLET PO PRN (14:55)
[2018-05-14 16:12] VITALS: BP 107/74
[2018-05-14] MEDS: LORazepam 1 MG TABLET PO SCH (20:40)
[2018-05-14] MEDS: MIRTAZAPINE 15 MG TABLET PO SCH (20:40)
--- NOTE | 2018-05-14 22:16 | PDOC ---
Exam Note: Jose Note: Please also refer to the separate dictated note~for this date of service dictated separately.~Patient seen individually. Discussed the patient with Nursing staff reviewed the chart.~Reviewed interim history and current functioning. Reviewed vital signs,~Labs/ Radiology~and current medications noted below. Continue current treatment with the changes noted in the dictated addendum note Assessment: Vital Signs: Vital Signs Date Time Temp Pulse Resp B/P (MAP) Pulse Ox O2 Delivery O2 Flow Rate FiO2 05/14/18 16:12 98.0 100 20 107/74 (85) 96 05/13/18 16:10 Room Air I&O Intake and Output 05/14/18 06:59 Intake Total 320 ml Balance 320 ml Intake Oral 320 ml Labs: Laboratory Tests Test 05/14/18 07:48 Valproic Acid Level 76 mcg/mL (50-100) Valproic Acid Last Dose Date 05/13/2018 Valproic Acid Last Dose Time 2100 Current Medications: Meds: Current Medications Lactated Ringer's 1,000 ml @ 100 mls/hr Q10H IV Last administered on at 18:38; Start 05/02/18 at 18:38; Stop 05/03/18 at 04:37; Status DC Lorazepam (Ativan) 2 mg 1X ONCE PO Last administered on 05/02/18at 20:30; Start 05/02/18 at 20:30; Stop 05/02/18 at 20:31; Status DC Diphenhydramine HCl (Benadryl Oral Elixir) 50 mg 1X ONCE PO Last administered on 05/02/18at 20:30; Start 05/02/18 at 20:30; Stop 05/02/18 at 20:31; Status DC Cephalexin HCl (Keflex) 500 mg 1X ONCE PO Last administered on 05/03/18at 08:10 ; Start 05/02/18 at 21:45; Stop 05/02/18 at 21:46; Status DC Acetaminophen (Tylenol) 650 mg PRN Q4HRS PRN PO FEVER; Start 05/02/18 at 21:30 ; Stop 05/03/18 at 21:29; Status DC Cephalexin HCl (Keflex) 500 mg 1X ONCE PO ; Start 05/02/18 at 22:15; Stop 05/02 at 22:16; Status DC Ziprasidone (Geodon Im) 20 mg 1X ONCE IM Last administered on 05/02/18 22:06 ; Start 05/02/18 at 21:45; Stop 05/02/18 at 22:14; Status DC Lorazepam (Ativan) 2 mg 1X ONCE IM Last administered on 05/02/18at 22:05; Start 05/02/18 at 21:45; Stop 05/02/18 at 22:14; Status DC Cephalexin HCl (Keflex) 500 mg TID PO Last administered on 05/05/18 12:53; Start 05/03/18 at 09:00; Stop 05/05/18 at 16:29; Status DC Multi-Ingredient Ointment (Analgesic [place]) 1 saqib PRN QID PRN TP MUSCLE PAIN; Start 05/03/18 at 02:00 Al Hydroxide/Mg Hydroxide (Mylanta Plus Xs) 15 ml PRN AFTMEALHC PRN PO DYSPEPSIA; Start 05/03/18 at 02:00 Magnesium Hydroxide (Milk Of Magnesia) 2,400 mg PRN QHS PRN PO CONSTIPATION; Start 05/03/18 at 02:00 Lorazepam (Ativan) 1 mg HS PO Last administered on 05/14/18 20:40; Start at 21:00 Lorazepam (Ativan) 1 mg PRN TID PRN PO ANXIETY / AGITATION Last administered on 05/14/18 14:55; Start 05/03/18 at 02:00 Divalproex Sodium (Depakote Sprinkles) 1,000 mg BID PO Last administered on 08:10; Start 05/03/18 at 09:00; Stop 05/03/18 at 19:52; Status DC Polyethylene Glycol (miraLAX) 17 gm DAILY PO Last administered on 05/14/18 08: 04; Start 05/03/18 at 09:00 Thiamine HCl (Vitamin B-1) 100 mg DAILY PO Last administered on 05/14/18 08:04 ; Start 05/03/18 at 09:00 Divalproex Sodium (Depakote Sprinkles) 1,000 mg DAILY PO Last administered on 08:04; Start 05/04/18 at 09:00 Divalproex Sodium (Depakote Sprinkles) 500 mg HS PO Last administered on 20:40; Start 05/04/18 at 21:00 Lactobacillus Rhamnosus (Culturelle) 1 cap BID PO Last administered on 20:40; Start 05/04/18 at 09:00 Folic Acid (Folic Acid) 1 mg DAILY PO Last administered on 05/14/18 08:04; Start 05/05/18 at 09:00 Sertraline HCl (Zoloft) 25 mg DAILY PO Last administered on 05/07/18 07:51; Start 05/05/18 at 09:00; Stop 05/07/18 at 09:01; Status DC Sertraline HCl (Zoloft) 50 mg DAILY PO Last administered on 05/13/18 07:57; Start 05/08/18 at 09:00; Stop 05/13/18 at 16:53; Status DC Betamethasone/ Clotrimazole (Lotrisone) 1 saqib BID TP Last administered on 08:08; Start 05/06/18 at 21:00; Stop 05/14/18 at 20:59; Status DC Mirtazapine (Remeron) 7.5 mg QHS PO Last administered on 05/11/18 19:50; Start 05/06/18 at 21:00; Stop 05/12/18 at 18:16; Status DC Acetaminophen (Tylenol) 650 mg PRN Q6HRS PRN PO PAIN / TEMP Last administered on 05/11/18 18:00; Start 05/11/18 at 18:00 Mirtazapine (Remeron) 15 mg QHS PO Last administered on 05/14/18 20:40; Start 05/12/18 at 21:00 Sertraline HCl (Zoloft) 75 mg DAILY PO Last administered on 05/14/18 08:07; Start 05/14/18 at 09:00 Active Scripts Active Reported Ativan (Lorazepam) 1 Mg Tablet 1 Mg PO PRN TID PRN Depakote Sprinkle (Divalproex Sodium) 125 Mg Cap.sprink 1,000 Mg PO BID Ativan (Lorazepam) 1 Mg Tablet 1 Mg PO HS Tylenol (Acetaminophen) 325 Mg Tablet 650 Mg PO PRN Q6HRS PRN Miralax (Polyethylene Glycol 3350) 17 Gm Powd.pack 1 Packet PO DAILY Vitamin B-1 (Thiamine Hcl) 100 Mg Tablet 100 Mg PO DAILY I have reviewed the current psychotropics carefully including drug interactions. Risk benefit ratio favors no change other than as noted in my dictated progress note. 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
--- NOTE | 2018-05-14 23:29 | PN ---
DATE: 05/13/2018 PSYCHIATRIC PROGRESS NOTE This late entry 05/13/2018 covers elements not covered in my initial note. SUBJECTIVE: I met with the patient in the evening. The patient has been somewhat disorganized. Slept 6-1/4 hours previous night. She was intrusive at night, more cooperative during the day on 05/13/2018. REVIEW OF SYSTEMS: No CV, , pulmonary, eye, ENT system symptoms on review. Reliability poor. MENTAL STATUS EXAM: Oriented to herself. Insight, judgment, recent and remote memory, attention, concentration, fund of knowledge poor, consistent with her diagnosis mentioned in my initial note. PLAN: Valproic acid level is 101, we will repeat another level. Increase Zoloft from 50 mg a day to 75 mg a day after she has been on 50 mg for 3 days. Rest unchanged for now. MAN Joann CATRAGENA MD DR: AARON/ann JOB#: [id number] / [id number]
[2018-05-15 06:01] VITALS: BP 102/68
[2018-05-15] MEDS: POLYETHYLENE GLYCOL 3350 17 GM PACKET. PO SCH (08:13)
[2018-05-15] MEDS: FOLIC ACID 1 MG TABLET PO SCH (08:14)
[2018-05-15] MEDS: LACTOBACILLUS RHAMNOSUS GG 1 CAPSULE. PO SCH ×2 (08:14→20:06)
[2018-05-15] MEDS: THIAMINE 100 MG TABLET. PO SCH (08:14)
[2018-05-15] MEDS: DIVALPROEX 125 MG CAP.SPRINK PO SCH ×2 (08:14→20:06)
[2018-05-15] MEDS: SERTRALINE 50 MG TABLET. PO SCH (08:14)
[2018-05-15 16:23] VITALS: BP 110/78
[2018-05-15] MEDS: MIRTAZAPINE 15 MG TABLET PO SCH (20:06)
[2018-05-15] MEDS: LORazepam 0.5 MG TABLET PO SCH (20:08)
--- NOTE | 2018-05-15 22:10 | PDOC ---
Exam Note: Jose Note: Please also refer to the separate dictated note~for this date of service dictated separately.~Patient seen individually. Discussed the patient with Nursing staff reviewed the chart.~Reviewed interim history and current functioning. Reviewed vital signs,~Labs/ Radiology~and current medications noted below. Continue current treatment with the changes noted in the dictated addendum note Assessment: Vital Signs: Vital Signs Date Time Temp Pulse Resp B/P (MAP) Pulse Ox O2 Delivery O2 Flow Rate FiO2 05/15/18 16:23 97.6 96 18 110/78 (89) 97 Room Air I&O Intake and Output 05/15/18 06:59 Intake Total 800 ml Balance 800 ml Intake Oral 800 ml # Voids 1 Current Medications: Meds: Current Medications Lactated Ringer's 1,000 ml @ 100 mls/hr Q10H IV Last administered on at 18:38; Start 05/02/18 at 18:38; Stop 05/03/18 at 04:37; Status DC Lorazepam (Ativan) 2 mg 1X ONCE PO Last administered on 05/02/18at 20:30; Start 05/02/18 at 20:30; Stop 05/02/18 at 20:31; Status DC Diphenhydramine HCl (Benadryl Oral Elixir) 50 mg 1X ONCE PO Last administered on 05/02/18at 20:30; Start 05/02/18 at 20:30; Stop 05/02/18 at 20:31; Status DC Cephalexin HCl (Keflex) 500 mg 1X ONCE PO Last administered on 05/03/18at 08:10 ; Start 05/02/18 at 21:45; Stop 05/02/18 at 21:46; Status DC Acetaminophen (Tylenol) 650 mg PRN Q4HRS PRN PO FEVER; Start 05/02/18 at 21:30 ; Stop 05/03/18 at 21:29; Status DC Cephalexin HCl (Keflex) 500 mg 1X ONCE PO ; Start 05/02/18 at 22:15; Stop 05/02 at 22:16; Status DC Ziprasidone (Geodon Im) 20 mg 1X ONCE IM Last administered on 05/02/18at 22:06 ; Start 05/02/18 at 21:45; Stop 05/02/18 at 22:14; Status DC Lorazepam (Ativan) 2 mg 1X ONCE IM Last administered on 05/02/18 22:05; Start 05/02/18 at 21:45; Stop 05/02/18 at 22:14; Status DC Cephalexin HCl (Keflex) 500 mg TID PO Last administered on 05/05/18 12:53; Start 05/03/18 at 09:00; Stop 05/05/18 at 16:29; Status DC Multi-Ingredient Ointment (Analgesic [place]) 1 saqib PRN QID PRN TP MUSCLE PAIN; Start 05/03/18 at 02:00 Al Hydroxide/Mg Hydroxide (Mylanta Plus Xs) 15 ml PRN AFTMEALHC PRN PO DYSPEPSIA; Start 05/03/18 at 02:00 Magnesium Hydroxide (Milk Of Magnesia) 2,400 mg PRN QHS PRN PO CONSTIPATION; Start 05/03/18 at 02:00 Lorazepam (Ativan) 1 mg HS PO Last administered on 05/14/18 20:40; Start at 21:00; Stop 05/15/18 at 10:29; Status DC Lorazepam (Ativan) 1 mg PRN TID PRN PO ANXIETY / AGITATION Last administered on 05/14/18 14:55; Start 05/03/18 at 02:00 Divalproex Sodium (Depakote Sprinkles) 1,000 mg BID PO Last administered on 08:10; Start 05/03/18 at 09:00; Stop 05/03/18 at 19:52; Status DC Polyethylene Glycol (miraLAX) 17 gm DAILY PO Last administered on 05/15/18 08: 13; Start 05/03/18 at 09:00 Thiamine HCl (Vitamin B-1) 100 mg DAILY PO Last administered on 05/15/18 08:14 ; Start 05/03/18 at 09:00 Divalproex Sodium (Depakote Sprinkles) 1,000 mg DAILY PO Last administered on 08:14; Start 05/04/18 at 09:00 Divalproex Sodium (Depakote Sprinkles) 500 mg HS PO Last administered on 20:06; Start 05/04/18 at 21:00 Lactobacillus Rhamnosus (Culturelle) 1 cap BID PO Last administered on 20:06; Start 05/04/18 at 09:00 Folic Acid (Folic Acid) 1 mg DAILY PO Last administered on 05/15/18 08:14; Start 05/05/18 at 09:00 Sertraline HCl (Zoloft) 25 mg DAILY PO Last administered on 05/07/18 07:51; Start 05/05/18 at 09:00; Stop 05/07/18 at 09:01; Status DC Sertraline HCl (Zoloft) 50 mg DAILY PO Last administered on 05/13/18 07:57; Start 05/08/18 at 09:00; Stop 05/13/18 at 16:53; Status DC Betamethasone/ Clotrimazole (Lotrisone) 1 saqib BID TP Last administered on 08:08; Start 05/06/18 at 21:00; Stop 05/14/18 at 20:59; Status DC Mirtazapine (Remeron) 7.5 mg QHS PO Last administered on 05/11/18 19:50; Start 05/06/18 at 21:00; Stop 05/12/18 at 18:16; Status DC Acetaminophen (Tylenol) 650 mg PRN Q6HRS PRN PO PAIN / TEMP Last administered on 05/11/18 18:00; Start 05/11/18 at 18:00 Mirtazapine (Remeron) 15 mg QHS PO Last administered on 05/15/18 20:06; Start 05/12/18 at 21:00 Sertraline HCl (Zoloft) 75 mg DAILY PO Last administered on 05/15/18 08:14; Start 05/14/18 at 09:00 Lorazepam (Ativan) 0.75 mg QHS PO Last administered on 05/15/18 20:08; Start at 21:00; Stop 05/16/18 at 23:50 Lorazepam (Ativan) 0.5 mg HS PO ; Start 05/17/18 at 21:00; Stop 05/18/18 at 23:50 Lorazepam (Ativan) 0.25 mg HS PO ; Start 05/19/18 at 21:00; Stop 05/20/18 at 23: 50 Active Scripts Active Reported Ativan (Lorazepam) 1 Mg Tablet 1 Mg PO PRN TID PRN Depakote Sprinkle (Divalproex Sodium) 125 Mg Cap.sprink 1,000 Mg PO BID Ativan (Lorazepam) 1 Mg Tablet 1 Mg PO HS Tylenol (Acetaminophen) 325 Mg Tablet 650 Mg PO PRN Q6HRS PRN Miralax (Polyethylene Glycol 3350) 17 Gm Powd.pack 1 Packet PO DAILY Vitamin B-1 (Thiamine Hcl) 100 Mg Tablet 100 Mg PO DAILY I have reviewed the current psychotropics carefully including drug interactions. Risk benefit ratio favors no change other than as noted in my dictated progress note. 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
[2018-05-16 06:35] VITALS: BP 114/79
[2018-05-16] MEDS: FOLIC ACID 1 MG TABLET PO SCH (07:50)
[2018-05-16] MEDS: SERTRALINE 50 MG TABLET. PO SCH (07:50)
[2018-05-16] MEDS: DIVALPROEX 125 MG CAP.SPRINK PO SCH ×2 (07:50→20:22)
[2018-05-16] MEDS: POLYETHYLENE GLYCOL 3350 17 GM PACKET. PO SCH (07:51)
[2018-05-16] MEDS: THIAMINE 100 MG TABLET. PO SCH (07:51)
[2018-05-16] MEDS: LACTOBACILLUS RHAMNOSUS GG 1 CAPSULE. PO SCH ×2 (07:51→20:22)
[2018-05-16 16:18] VITALS: BP 108/78
[2018-05-16] MEDS: MIRTAZAPINE 15 MG TABLET PO SCH (20:22)
[2018-05-16] MEDS: LORazepam 0.5 MG TABLET PO SCH (20:24)
--- NOTE | 2018-05-16 22:30 | PDOC ---
Exam Note: Jose Note: Please also refer to the separate dictated note~for this date of service dictated separately.~Patient seen individually. Discussed the patient with Nursing staff reviewed the chart.~Reviewed interim history and current functioning. Reviewed vital signs,~Labs/ Radiology~and current medications noted below. Continue current treatment with the changes noted in the dictated addendum note Assessment: Vital Signs: Vital Signs Date Time Temp Pulse Resp B/P (MAP) Pulse Ox O2 Delivery O2 Flow Rate FiO2 05/16/18 16:18 97.6 87 18 108/78 (88) 95 Room Air I&O Intake and Output 05/16/18 06:59 Intake Total 720 ml Balance 720 ml Intake Oral 720 ml Current Medications: Meds: Current Medications Lactated Ringer's 1,000 ml @ 100 mls/hr Q10H IV Last administered on at 18:38; Start 05/02/18 at 18:38; Stop 05/03/18 at 04:37; Status DC Lorazepam (Ativan) 2 mg 1X ONCE PO Last administered on 05/02/18at 20:30; Start 05/02/18 at 20:30; Stop 05/02/18 at 20:31; Status DC Diphenhydramine HCl (Benadryl Oral Elixir) 50 mg 1X ONCE PO Last administered on 05/02/18at 20:30; Start 05/02/18 at 20:30; Stop 05/02/18 at 20:31; Status DC Cephalexin HCl (Keflex) 500 mg 1X ONCE PO Last administered on 05/03/18at 08:10 ; Start 05/02/18 at 21:45; Stop 05/02/18 at 21:46; Status DC Acetaminophen (Tylenol) 650 mg PRN Q4HRS PRN PO FEVER; Start 05/02/18 at 21:30 ; Stop 05/03/18 at 21:29; Status DC Cephalexin HCl (Keflex) 500 mg 1X ONCE PO ; Start 05/02/18 at 22:15; Stop 05/02 at 22:16; Status DC Ziprasidone (Geodon Im) 20 mg 1X ONCE IM Last administered on 05/02/18at 22:06 ; Start 05/02/18 at 21:45; Stop 05/02/18 at 22:14; Status DC Lorazepam (Ativan) 2 mg 1X ONCE IM Last administered on 05/02/18 22:05; Start 05/02/18 at 21:45; Stop 05/02/18 at 22:14; Status DC Cephalexin HCl (Keflex) 500 mg TID PO Last administered on 05/05/18 12:53; Start 05/03/18 at 09:00; Stop 05/05/18 at 16:29; Status DC Multi-Ingredient Ointment (Analgesic [place]) 1 saqib PRN QID PRN TP MUSCLE PAIN; Start 05/03/18 at 02:00 Al Hydroxide/Mg Hydroxide (Mylanta Plus Xs) 15 ml PRN AFTMEALHC PRN PO DYSPEPSIA; Start 05/03/18 at 02:00 Magnesium Hydroxide (Milk Of Magnesia) 2,400 mg PRN QHS PRN PO CONSTIPATION; Start 05/03/18 at 02:00 Lorazepam (Ativan) 1 mg HS PO Last administered on 05/14/18 20:40; Start at 21:00; Stop 05/15/18 at 10:29; Status DC Lorazepam (Ativan) 1 mg PRN TID PRN PO ANXIETY / AGITATION Last administered on 05/14/18 14:55; Start 05/03/18 at 02:00 Divalproex Sodium (Depakote Sprinkles) 1,000 mg BID PO Last administered on 08:10; Start 05/03/18 at 09:00; Stop 05/03/18 at 19:52; Status DC Polyethylene Glycol (miraLAX) 17 gm DAILY PO Last administered on 05/16/18 07: 51; Start 05/03/18 at 09:00 Thiamine HCl (Vitamin B-1) 100 mg DAILY PO Last administered on 05/16/18 07:51 ; Start 05/03/18 at 09:00 Divalproex Sodium (Depakote Sprinkles) 1,000 mg DAILY PO Last administered on 07:50; Start 05/04/18 at 09:00 Divalproex Sodium (Depakote Sprinkles) 500 mg HS PO Last administered on 20:22; Start 05/04/18 at 21:00 Lactobacillus Rhamnosus (Culturelle) 1 cap BID PO Last administered on 20:22; Start 05/04/18 at 09:00 Folic Acid (Folic Acid) 1 mg DAILY PO Last administered on 05/16/18 07:50; Start 05/05/18 at 09:00 Sertraline HCl (Zoloft) 25 mg DAILY PO Last administered on 05/07/18 07:51; Start 05/05/18 at 09:00; Stop 05/07/18 at 09:01; Status DC Sertraline HCl (Zoloft) 50 mg DAILY PO Last administered on 05/13/18 07:57; Start 05/08/18 at 09:00; Stop 05/13/18 at 16:53; Status DC Betamethasone/ Clotrimazole (Lotrisone) 1 saqib BID TP Last administered on 08:08; Start 05/06/18 at 21:00; Stop 05/14/18 at 20:59; Status DC Mirtazapine (Remeron) 7.5 mg QHS PO Last administered on 05/11/18 19:50; Start 05/06/18 at 21:00; Stop 05/12/18 at 18:16; Status DC Acetaminophen (Tylenol) 650 mg PRN Q6HRS PRN PO PAIN / TEMP Last administered on 05/11/18 18:00; Start 05/11/18 at 18:00 Mirtazapine (Remeron) 15 mg QHS PO Last administered on 05/16/18 20:22; Start 05/12/18 at 21:00 Sertraline HCl (Zoloft) 75 mg DAILY PO Last administered on 05/16/18 07:50; Start 05/14/18 at 09:00 Lorazepam (Ativan) 0.75 mg QHS PO Last administered on 05/16/18 20:24; Start at 21:00; Stop 05/16/18 at 23:50 Lorazepam (Ativan) 0.5 mg HS PO ; Start 05/17/18 at 21:00; Stop 05/18/18 at 23:50 Lorazepam (Ativan) 0.25 mg HS PO ; Start 05/19/18 at 21:00; Stop 05/20/18 at 23: 50 Active Scripts Active Reported Ativan (Lorazepam) 1 Mg Tablet 1 Mg PO PRN TID PRN Depakote Sprinkle (Divalproex Sodium) 125 Mg Cap.sprink 1,000 Mg PO BID Ativan (Lorazepam) 1 Mg Tablet 1 Mg PO HS Tylenol (Acetaminophen) 325 Mg Tablet 650 Mg PO PRN Q6HRS PRN Miralax (Polyethylene Glycol 3350) 17 Gm Powd.pack 1 Packet PO DAILY Vitamin B-1 (Thiamine Hcl) 100 Mg Tablet 100 Mg PO DAILY I have reviewed the current psychotropics carefully including drug interactions. Risk benefit ratio favors no change other than as noted in my dictated progress note. 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
--- NOTE | 2018-05-17 03:44 | PN ---
DATE: 05/14/2018 PSYCHIATRIC PROGRESS NOTE This late entry 05/14/2018 covers elements not covered in my initial note. SUBJECTIVE: I met with the patient in the evening. The patient slept 6-1/2 hours previous night. She is tearful after lunch, does have a bruise on her hip, but no pain; probably she had a fall that was unwitnessed. She was anxious in the evening, received Ativan, then did better. Valproic acid level is 76. REVIEW OF SYSTEMS: No CV, , pulmonary, eye, ENT system symptoms on review. Reliability poor. MENTAL STATUS EXAM: Oriented to herself. Insight, judgment, recent and remote memory, attention, concentration, fund of knowledge poor, consistent with her diagnosis mentioned in my initial note. PLAN: No change from initial note. MAN Joann CARTAGENA MD DR: AARON/ann JOB#: [id number] / [id number]
--- NOTE | 2018-05-17 04:06 | PN ---
DATE: 05/15/2018 PSYCHIATRIC PROGRESS NOTE This late entry 05/15/2018 covers elements not covered in my initial note. SUBJECTIVE: I met with the patient in the evening and staffed at a treatment team meeting with the entire team earlier in the day. The patient's daughter, Dianne, attended the treatment team meeting. The patient has been confused, wandering, speech is word salad, compliant with medications, takes it in Boost, appetite is 50%, slept 6 hours average. REVIEW OF SYSTEMS: No CV, , pulmonary, eye, ENT system symptoms on review. Reliability poor. MENTAL STATUS EXAM: Oriented to herself. Insight, judgment, recent and remote memory, attention, concentration, fund of knowledge poor, consistent with her diagnosis mentioned in my initial note. PLAN: No change from initial note. MAN Joann CARTAGENA MD DR: AARON/ann JOB#: [id number] / [id number]
[2018-05-17 05:47] VITALS: BP 93/60
[2018-05-17] MEDS: LACTOBACILLUS RHAMNOSUS GG 1 CAPSULE. PO SCH ×2 (07:59→19:32)
[2018-05-17] MEDS: FOLIC ACID 1 MG TABLET PO SCH (07:59)
[2018-05-17] MEDS: SERTRALINE 50 MG TABLET. PO SCH (07:59)
[2018-05-17] MEDS: THIAMINE 100 MG TABLET. PO SCH (07:59)
[2018-05-17] MEDS: POLYETHYLENE GLYCOL 3350 17 GM PACKET. PO SCH (07:59)
[2018-05-17] MEDS: DIVALPROEX 125 MG CAP.SPRINK PO SCH ×2 (08:01→19:32)
[2018-05-17 15:43] VITALS: BP 110/77
[2018-05-17] MEDS: MIRTAZAPINE 15 MG TABLET PO SCH (19:32)
[2018-05-17] MEDS: LORazepam 0.5 MG TABLET PO SCH (19:34)
[2018-05-17] MEDS: LORazepam 1 MG TABLET PO PRN (22:46)
[2018-05-18 06:10] VITALS: BP 105/89
[2018-05-18 07:47] LABS: BASO % 0 % (0-3); EOS # 0.2 x10^3/uL (0.0-0.7); EOS % 3 % (0-3); HEMATOCRIT 37.6 % (36.0-47.0); HEMOGLOBIN 12.3 g/dL (12.0-15.5); LYMPH # 2.7 x10^3/uL (1.0-4.8); LYMPH % 42 % (24-48); MEAN CORPUSCULAR HEMOGLOBIN 32 pg (25-35); MEAN CORPUSCULAR HGB CONC 33 g/dL (31-37); MEAN CORPUSCULAR VOLUME 98 fL (79-100); MONO # 1.1 x10^3/uL (0.0-1.1); MONO % 17 % (0-9); NEUT # 2.4 x10^3uL (1.8-7.7); NEUT % 37 % (31-73); PLATELET COUNT 94 x10^3/uL (140-400); RED BLOOD COUNT 3.83 x10^6/uL (3.50-5.40); RED CELL DISTRIBUTION WIDTH 16.1 % (11.5-14.5); WHITE BLOOD COUNT 6.3 x10^3/uL (4.0-11.0)
[2018-05-18 08:06] LABS: ALBUMIN 2.5 g/dL (3.4-5.0); ALBUMIN/GLOBULIN RATIO 0.8 (1.0-1.7); CALCIUM 8.9 mg/dL (8.5-10.1); CREATININE 0.8 mg/dL (0.6-1.0); GFR 73.9; POTASSIUM 3.7 mmol/L (3.5-5.1); TOTAL BILIRUBIN 0.4 mg/dL (0.2-1.0); TOTAL PROTEIN 5.8 g/dL (6.4-8.2)
[2018-05-18] MEDS: DIVALPROEX 125 MG CAP.SPRINK PO SCH ×2 (08:06→20:54)
[2018-05-18] MEDS: LACTOBACILLUS RHAMNOSUS GG 1 CAPSULE. PO SCH ×2 (08:06→20:53)
[2018-05-18] MEDS: SERTRALINE 50 MG TABLET. PO SCH (08:06)
[2018-05-18] MEDS: FOLIC ACID 1 MG TABLET PO SCH (08:06)
[2018-05-18] MEDS: THIAMINE 100 MG TABLET. PO SCH (08:06)
[2018-05-18] MEDS: POLYETHYLENE GLYCOL 3350 17 GM PACKET. PO SCH (08:06)
[2018-05-18 08:21] LABS: PLT ESTIMATE DECREASED (ADEQUATE)
[2018-05-18 16:11] VITALS: BP 109/83
[2018-05-18] MEDS: LORazepam 0.5 MG TABLET PO SCH (20:53)
[2018-05-18] MEDS: MIRTAZAPINE 15 MG TABLET PO SCH (20:53)
--- NOTE | 2018-05-19 00:01 | PN ---
DATE: 05/17/2018 SUBJECTIVE: The patient was seen today. He met with the staff, chart reviewed. The patient continues to have behavior problems, confusion, picking imaginary objects, difficult to redirect, constantly pacing, and wandering. OBSERVATION: VITAL SIGNS: Temperature 96.9, blood pressure 93/60, pulse 62, respirations 16, O2 sat 95%. GENERAL: Slept about 8 hours last night. The patient's appetite is fair. PSYCHIATRIC: The patient is currently not exhibiting any major medical issues or major behavior problems. MEDICATIONS: The patient is currently on lorazepam 0.25 mg at night and 0.5 mg ____, Zoloft 75 mg daily, mirtazapine 15 mg at night, Depakote 500 mg at night and 1000 mg daily. The patient is not having any side effects from the medications. The patient denies of having had any falls. 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 PLAN: To continue with the current treatment. JUANCHO BRANHAM MD DR: LIONEL/ann JOB#: [id number] / [id number]
--- NOTE | 2018-05-19 00:12 | PN ---
DATE: 05/16/2018 PSYCHIATRIC PROGRESS NOTE This late entry 05/16/2018 covers elements not covered in my initial note. SUBJECTIVE: I met with the patient in the evening. The patient slept 7-1/2 hours previous night. She remains confused, disorganized, oblivious to her surroundings, at times not even recognizing and responding to her name. She has been wandering, resistive to medications in the morning. REVIEW OF SYSTEMS: No CV, , pulmonary, eye, ENT system symptoms on review. Reliability poor. MENTAL STATUS EXAM: Oriented to herself. Insight, judgment, recent and remote memory, attention, concentration, fund of knowledge consistent with her diagnoses mentioned in my initial note. PLAN: No change from initial note. MAN Joann CARTAGENA MD DR: AARON/ann JOB#: [id number] / [id number]
--- NOTE | 2018-05-19 03:59 | PN ---
DATE: 05/18/2018 SUBJECTIVE: The patient was seen today, met with the staff, chart reviewed. The patient is still exhibiting some mood swings, irritability. The patient also is confused, tend to wander, and picking up imaginary things. The patient needs close observation and she is difficult to redirect. OBSERVATION: The patient's vital signs are stable. The patient's sleep and appetite have improved. The patient's behavior has continued to vary, increased agitation, restlessness, wandering, unable to settle down, and also increased anxiety. MEDICATIONS: The patient's current medications include lorazepam 0.25 mg at night and 0.5 mg , Zoloft 75 mg daily, mirtazapine 15 mg at night, Depakote 500 mg at night and 1000 mg daily, lorazepam 1 mg t.i.d. p.r.n. The patient is not having any side effects. The patient's lab reviewed. ASSESSMENT: Major neurocognitive disorder, most likely Alzheimer's, generalized anxiety disorder. PLAN: Continue with the treatment. JUANCHO BRANHAM MD DR: LIONEL/ann JOB#: [id number] / [id number]
[2018-05-19 06:03] VITALS: BP 99/62
[2018-05-19] MEDS: POLYETHYLENE GLYCOL 3350 17 GM PACKET. PO SCH (09:33)
[2018-05-19] MEDS: SERTRALINE 50 MG TABLET. PO SCH (09:34)
[2018-05-19] MEDS: FOLIC ACID 1 MG TABLET PO SCH (09:34)
[2018-05-19] MEDS: LACTOBACILLUS RHAMNOSUS GG 1 CAPSULE. PO SCH ×2 (09:34→19:39)
[2018-05-19] MEDS: THIAMINE 100 MG TABLET. PO SCH (09:34)
[2018-05-19] MEDS: DIVALPROEX 125 MG CAP.SPRINK PO SCH ×2 (09:35→19:40)
[2018-05-19 16:23] VITALS: BP 121/77
[2018-05-19] MEDS: MIRTAZAPINE 15 MG TABLET PO SCH (19:40)
[2018-05-19] MEDS: LORazepam 0.5 MG TABLET PO SCH (19:41)
--- NOTE | 2018-05-20 03:29 | PN ---
DATE: 05/19/2018 SUBJECTIVE: The patient was seen today, met with the staff, chart reviewed. The patient continues to be tearful, constantly depressed, pacing, increased agitation, decreased appetite. OBSERVATION: VITAL SIGNS: Temperature 97.2, blood pressure 99/62, pulse 58, respirations 18, O2 sat 99%. Slept about 8 hours last night. CURRENT MEDICATIONS: The patient's current medications include lorazepam 0.25 mg at night and 0.5 mg daily, Zoloft 75 mg daily, mirtazapine 15 mg at night, Depakote 500 mg at night and 1000 mg daily, and lorazepam 1 mg t.i.d. p.r.n. The patient denies of any side effects. The patient is not having any physical complaints. ASSESSMENT: 1. Major neurocognitive disorder, most likely Alzheimer's. 2. Generalized anxiety disorder. PLAN: To continue with the treatment. The patient is planned for discharge this week. Return to schedule on care. JUANCHO BRANHAM MD DR: LIONEL/ann JOB#: [id number] / [id number]
[2018-05-20 06:25] VITALS: BP 87/51
[2018-05-20] MEDS: LACTOBACILLUS RHAMNOSUS GG 1 CAPSULE. PO SCH ×2 (09:00→19:38)
[2018-05-20] MEDS: THIAMINE 100 MG TABLET. PO SCH (09:00)
[2018-05-20] MEDS: DIVALPROEX 125 MG CAP.SPRINK PO SCH ×2 (09:00→19:38)
[2018-05-20] MEDS: POLYETHYLENE GLYCOL 3350 17 GM PACKET. PO SCH (09:00)
[2018-05-20] MEDS: SERTRALINE 50 MG TABLET. PO SCH (09:00)
[2018-05-20] MEDS: FOLIC ACID 1 MG TABLET PO SCH (09:00)
[2018-05-20] MEDS: LORazepam 1 MG TABLET PO PRN (09:14)
[2018-05-20 16:10] VITALS: BP 97/72
[2018-05-20] MEDS: MIRTAZAPINE 15 MG TABLET PO SCH (19:38)
[2018-05-20] MEDS: LORazepam 0.5 MG TABLET PO SCH (19:40)
--- NOTE | 2018-05-21 03:59 | PN ---
DATE: 05/20/2018 SUBJECTIVE: The patient was seen today, met with the staff, chart reviewed. The patient continues to be tearful, complains of feeling depressed, tend to pace a lot, and increased agitation. OBSERVATION: VITAL SIGNS: Temperature 97.5, blood pressure 97/72, pulse 59, respirations 16, O2 sat 96%. The patient's appetite and sleep have decreased. MEDICATIONS: The patient's current medications include lorazepam 0.25 mg at night and 0.5 mg daily, Zoloft 75 mg daily, mirtazapine 15 mg at night, Depakote 500 mg at night and 1000 mg daily, lorazepam 1 mg t.i.d. p.r.n. The patient is not having any major side effects, no major physical complaints. ASSESSMENT: 1. Major neurocognitive disorder, most likely Alzheimer's. 2. Generalized anxiety disorder. PLAN: To continue with the treatment. JUANCHO BRANHAM MD DR: LIONEL/ann JOB#: [id number] / [id number]
[2018-05-21 06:02] VITALS: BP 98/68
[2018-05-21] MEDS: FOLIC ACID 1 MG TABLET PO SCH (09:02)
[2018-05-21] MEDS: THIAMINE 100 MG TABLET. PO SCH (09:02)
[2018-05-21] MEDS: LACTOBACILLUS RHAMNOSUS GG 1 CAPSULE. PO SCH ×2 (09:02→19:26)
[2018-05-21] MEDS: POLYETHYLENE GLYCOL 3350 17 GM PACKET. PO SCH (09:02)
[2018-05-21] MEDS: DIVALPROEX 125 MG CAP.SPRINK PO SCH ×2 (09:03→19:26)
[2018-05-21] MEDS: SERTRALINE 50 MG TABLET. PO SCH (09:03)
[2018-05-21] MEDS: LORazepam 1 MG TABLET PO PRN (09:56)
[2018-05-21 17:26] VITALS: BP 92/68
[2018-05-21] MEDS: MIRTAZAPINE 15 MG TABLET PO SCH (19:26)
[2018-05-22] MEDS ORDERED: DIVA125C2 PO (00:20)
[2018-05-22] MEDS ORDERED: FOLI1TAB16 PO (00:22)
[2018-05-22] MEDS ORDERED: LACT1CAP21 PO (00:23)
[2018-05-22] MEDS ORDERED: MAG30ORA2 PO (00:24)
[2018-05-22] MEDS ORDERED: MAGN2400 PO (00:25)
[2018-05-22] MEDS ORDERED: METH29OI TP (00:26)
[2018-05-22] MEDS ORDERED: MIRT15TA3 PO (00:26)
[2018-05-22] MEDS ORDERED: SERT50TA PO (00:28)
[2018-05-22] MEDS: POLYETHYLENE GLYCOL 3350 17 GM PACKET. PO SCH (09:07)
[2018-05-22] MEDS: DIVALPROEX 125 MG CAP.SPRINK PO SCH (09:08)
[2018-05-22] MEDS: SERTRALINE 50 MG TABLET. PO SCH (09:08)
[2018-05-22] MEDS: LACTOBACILLUS RHAMNOSUS GG 1 CAPSULE. PO SCH (09:08)
[2018-05-22] MEDS: THIAMINE 100 MG TABLET. PO SCH (09:08)
[2018-05-22] MEDS: FOLIC ACID 1 MG TABLET PO SCH (09:09)
--- NOTE | 2018-05-22 23:14 | DS ---
DATE OF DISCHARGE: 05/22/2018 FINAL DIAGNOSES: AXIS I: 1. 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 2. Anxiety disorder, unspecified. 3. Impulse control disorder, unspecified. AXIS II: None. AXIS III: Recent urinary tract infection, bradycardia, peripheral vascular disease, chronic pain, gastroesophageal reflux disease. The patient was involved in the program including individual therapy, group therapy, activity therapy. REASON FOR ADMISSION: This is a 57-year-old female who was admitted to [facility] from [facility] because of increased confusion with alcohol dementia, intrusive, increased agitation, actively hallucinating, also increased behavior problems, yelling, cursing, and was not manageable at that facility. HISTORY OF PRESENT ILLNESS: The patient has history of alcohol amnestic disorder and the patient has been living in that facility and also seeing an outpatient psychiatrist. The patient's behavior has gotten worse over a period of time and also she is exhibiting marked emotional lability, increased confusion, agitation and aggression. HOSPITAL COURSE: The patient had a physical exam, routine lab work including CBC, chem profile, urinalysis, which were all within normal range except for sodium level of 147, chloride 109, BUN and creatinine ratio was 23. The patient also had a chest x-ray and also CT scan of head, cervical spine. The result showed no acute intracranial hemorrhage. There was mild cervical spondylosis minimal height loss of C4. The patient was also seen by Dr. Villegas for physical exam. The patient was treated with lorazepam 0.25 mg at night and 0.5 mg daily, Zoloft 75 mg daily, mirtazapine 15 mg at night, and Depakote 500 mg at night and 1000 mg daily. The patient was also on lorazepam 1 mg t.i.d. p.r.n. The patient did not have any side effects. The patient did not have any falls prior to discharge. The patient has been compliant with the treatment. Her behavior improved significantly. AFTERCARE PLAN: The patient was returned to [facility] with the recommendation to continue with the medications above. The patient will be seen by this outpatient psychiatric for followup. JUANCHO BRANHAM MD DR: LIONEL/ann JOB#: [id number] / [id number]
== END 2018-05-22 13:15 | DRG 57 ==
LOC: ER 18:32 → GEROPSY 05-03 01:37 → UNDOADMIN 05-03 01:38 → GEROPSY 05-03 01:38
PROVIDERS: ADMIT Psychiatry & Neurology Psychiatry; ATTEND Psychiatry & Neurology Psychiatry
DX: G30.9 Alzheimer's disease, unspecified (principal); F01.51 Vascular dementia, unspecified severity, with behavioral disturbance; F02.81 Dementia in other diseases classified elsewhere, unspecified severity, with behavioral disturbance; F10.251 Alcohol dependence with alcohol-induced psychotic disorder with hallucinations; F10.27 Alcohol dependence with alcohol-induced persisting dementia; R47.01 Aphasia; E44.0 Moderate protein-calorie malnutrition; F04 Amnestic disorder due to known physiological condition; K59.09 Other constipation; F10.26 Alcohol dependence with alcohol-induced persisting amnestic disorder; F31.9 Bipolar disorder, unspecified; F20.9 Schizophrenia, unspecified; F41.1 Generalized anxiety disorder; F63.9 Impulse disorder, unspecified; G89.4 Chronic pain syndrome; G47.00 Insomnia, unspecified; I73.9 Peripheral vascular disease, unspecified; K21.9 Gastro-esophageal reflux disease without esophagitis; Z87.440 Personal history of urinary (tract) infections; Z79.899 Other long term (current) drug therapy; Z68.25 Body mass index [BMI] 25.0-25.9, adult
CPT/HCPCS: 36415; 70450; 71045; 72125; 80048; 80053; 80061; 80076; 80164; 80307; 81001; 82306; 82550; 83036; 83540; 83550; 83690; 83735; 83880; 84436; 84443; 84480; 84484; 85025; 85610; 85651; 85730; 86592; 87086; 93005; 96360; 96372; J2060; J3486; J7120; 99285-25